=== PATIENT | female | born 1985 | race Caucasian/White ===

== ENCOUNTER → 2017-10-17 | Outpatient (CLI) | payer OTHER ==
[2017-10-17 13:34] LABS: BLOOD UREA NITROGEN 14 mg/dl (7-18); CALCIUM 9.2 mg/dl (8.5-10.1); CARBON DIOXIDE 30 mmol/L (21-32); CREATININE 0.64 mg/dl (0.60-1.20); GLUCOSE 97 mg/dl (70-99); POTASSIUM 3.9 mmol/L (3.5-5.1); SODIUM 136 mmol/L (136-145)
[2017-10-17 13:37] LABS: CHOLESTEROL 149 mg/dl (0-200); LDL CHOLESTEROL CALCULATED 76 mg/dl
== END | disposition home or self-care (01) ==
LOC: C.LABPVFM 08:28
PROVIDERS: ATTEND Nurse Practitioner Family
DX: E66.01 Morbid (severe) obesity due to excess calories (principal); I10 Essential (primary) hypertension

== ENCOUNTER → 2018-01-16 | Outpatient (CLI) | payer OTHER ==
[2018-01-16 13:37] LABS: BLOOD UREA NITROGEN 15 mg/dl (7-18); CARBON DIOXIDE 27 mmol/L (21-32); CREATININE 0.64 mg/dl (0.60-1.20); GLUCOSE 104 mg/dl (70-99); POTASSIUM 4.3 mmol/L (3.5-5.1); SODIUM 136 mmol/L (136-145)
== END | disposition home or self-care (01) ==
LOC: C.LABPVFM 08:42
PROVIDERS: ATTEND Nurse Practitioner Family
DX: I10 Essential (primary) hypertension (principal)

== ENCOUNTER 2020-04-24 17:55 | Inpatient (IN) ==
[2020-04-24] MEDS ORDERED: SODIUM CHLORIDE 0.9% 1000ML 2,000 ML IV ONE (18:21)
[2020-04-24] MEDS ORDERED: cefTRIAXone SODIUM 1,000 MG/50 ML BAG IV STA (18:21)
[2020-04-24] MEDS ORDERED: ACETAMINOPHEN 500 MG TAB PO STA (18:21)
[2020-04-24] MEDS ORDERED: KETOROLAC TROMETHAMINE 15 MG/ML VIAL IV ONE ×2 (18:21→23:35)
--- NOTE | 2020-04-24 18:28 | Emergency Department Note ---
Impression & Plan SIRS (systemic inflammatory response syndrome), Fever, Tachycardia, Cough, Abdominal pain, Morbid obesity, Leukocytosis ED Provider Note NAME: NASIM DEVRIES AGE: 35 SEX: F : 1985 ARRIVES VIA: Walk-In INFORMANT: Patient ED PROVIDER(S): French Albright DO CHIEF COMPLAINT: Fever HPI: Patient is a 35-year-old female who presents the ER for fevers. She notes her symptoms started today in the afternoon around 12:00. Since then she has been having fevers above 101. She has been having belly pain in the epigastric region and is a 5 out of 10. She admits to a dry cough. She does have some shortness of breath and chest pain as well which has been present since 12. She denies any dysuria urgency or frequency. Belly pain is a little worse with m ovement. Does not appear to change with eating or drinking. Last menstrual period was 7 days ago. She has not been around anybody that has been sick that she is aware of. 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 She also admits to a mild headache which is a 2 out of 10. She has diffuse myalgias and arthralgias. She denies any tick bites. ROS: See above HPI for pertinent positives & negatives. A total of 10 systems reviewed and were otherwise negative. PAST MEDICAL HISTORY:See Below PAST SURGICAL HISTORY:See Below FAMILY HISTORY:See Below SOCIAL HISTORY:See Below HOME MEDICATIONS:See Below ALLERGIES:See Below VITALS:See Below PHYSICAL EXAMINATION: GENERAL: Sitting up in bed, alert, morbidly obese, crying, disheveled EYE EXAM: normal conjunctiva. PERRL and EOM's grossly intact. EARS: TMs clear bilateral OROPHARYNX: no exudate, no erythema, lips, buccal mucosa, and tongue normal and mucous membranes are moist NECK: supple, no nuchal rigidity, no adenopathy, non-tender LUNGS: Clear to auscultation. Normal chest wall mechanics HEART: no murmurs, S1 normal and S2 normal ABDOMEN: abdomen soft, tender in the epigastric region, normo-active bowel sounds, no masses, no rebound or guarding. BACK: Back is symmetrical on inspection and there is no deformity, no midline tenderness, no CVA tenderness. SKIN: no rashes and no bruising UPPER EXTREMITIES: upper extremities are grossly normal. LOWER EXTREMITIES: No pitting edema. Calves are equal bilateral NEURO EXAM: Normal sensorium, cranial nerves II-XII grossly intact, normal speech, no gross weakness of arms, no gross weakness of legs. No drift. Finger to nose intact. Gross sensation intact. MEDICAL DECISION MAKING: Patient is a morbidly obese 35-year-old female who presents the ER for multitude of complaints which include fevers, myalgias, arthralgias, abdominal pain, cough ear pain and a mild headache. IV was established blood work was obtained. Patient was febrile at 39.4 and tachycardic at 120. Labs were remarkable for a leukocytosis of 23,000. No significant anemia. INR was unremarkable. BMP with slightly elevated glucose. Magnesium was low. LFTs and troponin were negative. Pro-Vazquez was normal. Lactic acid was normal. UA was contaminated with epithelial cells but clean. was negative. Bio fire was negative for the flu. Rapid COVID was negative. Chest x-ray was unremarkable. CT abdomen pelvis and head were negative. There is no nuchal rigidity. She has multitude of other complaints and I do not feel this most consistent with meningitis or e ncephalitis. Patient was given IV Rocephin and covered for sepsis. IV fluids x 2 L. She was given IV Toradol and oral Tylenol.. She was updated bedside. Discussed with the hospitalist admitted for further work-up. Triage Nursing notes reviewed. Prior medical records reviewed Vital Signs: reviewed and remarkable for febrile and tachycardic Differential diagnosis: Differential diagnosis includes etiologies such as sepsis, UTI, pneumonia, me tabolic, electrolyte abnormalities, cardiac sources, intracerebral event, toxicologic, neurological, as well as others were entertained. ER treatment provided: See below Diagnostics interpreted by me: ECG: Sinus tachycardia rate of 115 Normal axis TWI in lead III TWI in the septal leads Normal QTC Cardiac Monitoring: An order was placed for continuous cardiac monitoring. The monitor shows a rate of 115 with sinus rhythm. Laboratory studies: As stated above and show below. Imaging studies: CT abdomen pelvis, CT head were unremarkable Portable AP upright 1 view of the chest was unremarkable Consultation(s): Discussed with Liya Renner for admission. ED COURSE: Procedures: none Critical Care: I have personally spent 31 minutes of critical care time in the direct management of this patient. This includes bedside care, interpretation of diagnostic studies, and testing, discussion with consultants, patient, and family members, and other required patient management activities. This 31 minutes is in excess of all separately billable procedures. Past Med/Surg History Medical History (Updated 04/24/20 @ 22:23 by French Albright DO) Anxiety (Chronic) Essential hypertension (Chronic) Factor V Leiden (Chronic) GERD without esophagitis (Chronic) Protein S deficiency (Chronic) Super obesity (Chronic) Surgical History (Updated 01/14/20 @ 10:17 by ELBA Bullock) History of dental surgery Family History (Updated 01/14/20 @ 10:18 by ELBA Bullock) Other No pertinent family history Denies family history of Ovarian cancer Prostate cancer Myocardial infarction Breast cancer Colorectal cancer Social History Smoking Status: Never smoker Hx Alcohol Use: Yes Hx Substance Use: No marital status: Current Living Situation: Spouse current occupational status: employed Feels Safe at Home: Yes Dental Care, Regularly: Yes Seatbelt Use: always Allergies Allergies Allergy/AdvReac Type Severity Reaction Status Date / Time latex Allergy Mild RASH ON Verified 04/24/20 19:46 ARMS FROM USING GLOVES Penicillins Allergy Mild RASH Verified 04/24/20 19:46 CHILD NICKELSULFATE Allergy Mild RASH AND Uncoded 04/24/20 19:46 IRRITATION WHEN WEARS JEWELERY OR BUCKLE WITH NICKE Home Meds Previous Rx's Medication Instructions Recorded sertraline 50 mg tablet 50 mg PO DAILY #90 tab 08/25/19 famotidine 40 mg tablet 40 mg PO HS PRN #90 tab 10/08/19 lisinopril 20 mg tablet 20 mg PO DAILY #90 tab 10/08/19 furosemide 20 mg tablet 10 mg PO DAILY #45 tab 10/15/19 omeprazole 20 mg capsule,delayed 20 mg PO DAILY #90 cap 02/22/20 release Results & Data (ED) Vital Signs Vital Signs - 24 hr 04/24/20 17:59 04/24/20 18:26 04/24/20 18:29 Temperature 38.6 C H Temperature Source Oral Pulse Rate 120 H 115 H Pulse Rate from SpO2 Sensor 114 H Respiratory Rate 20 18 Respiratory Effort / Characteristics Non-Labored Non-Labored Spontaneous Respiratory Depth Normal Respiratory Pattern Regular Blood Pressure 145/62 H Blood Pressure Mean 89 Pulse Oximetry 98 95 Oxygen Delivery Method Room Air Room Air Room Air Sepsis Recent Fever Within 48 Hours Yes Sepsis New/Unexplained Change in Mental Status N/A Sepsis Action Taken by Nursing No Action Required 04/24/20 18:30 04/24/20 18:39 04/24/20 18:40 Temperature Temperature Source Pulse Rate 113 H 111 H Pulse Rate from SpO2 Sensor 114 H 112 H Respiratory Rate 18 21 Respiratory Effort / Characteristics Non-Labored Spontaneous Respiratory Depth Respiratory Pattern Blood Pressure Blood Pressure Mean Pulse Oximetry 97 98 Oxygen Delivery Method Room Air Room Air Room Air Sepsis Recent Fever Within 48 Hours Sepsis New/Unexplained Change in Mental Status Sepsis Action Taken by Nursing 04/24/20 18:50 04/24/20 19:00 04/24/20 19:30 Temperature Temperature Source Pulse Rate 108 H 116 H Pulse Rate from SpO2 Sensor 108 H 117 H Respiratory Rate 19 19 Respiratory Effort / Characteristics Non-Labored Respiratory Depth Respiratory Pattern Blood Pressure Blood Pressure Mean Pulse Oximetry 99 98 95 Oxygen Delivery Method Room Air Room Air Room Air Sepsis Recent Fever Within 48 Hours Sepsis New/Unexplained Change in Mental Status Sepsis Action Taken by Nursing 04/24/20 19:49 04/24/20 20:12 04/24/20 20:30 Temperature 39.4 C H Temperature Source Oral Pulse Rate Pulse Rate from SpO2 Sensor Respiratory Rate 18 Respiratory Effort / Characteristics Non-Labored Non-Labored Respiratory Depth Respiratory Pattern Blood Pressure Blood Pressure Mean Pulse Oximetry 96 95 Oxygen Delivery Method Room Air Room Air Sepsis Recent Fever Within 48 Hours Sepsis New/Unexplained Change in Mental Status Sepsis Action Taken by Nursing 04/24/20 21:00 04/24/20 21:30 Temperature Temperature Source Pulse Rate Pulse Rate from SpO2 Sensor Respiratory Rate Respiratory Effort / Characteristics Non-Labored Non-Labored Respiratory Depth Respiratory Pattern Blood Pressure Blood Pressure Mean Pulse Oximetry 95 Oxygen Delivery Method Room Air Sepsis Recent Fever Within 48 Hours Sepsis New/Unexplained Change in Mental Status Sepsis Action Taken by Nursing Laboratory Data Result diagrams: 04/24/20 18:34 04/24/20 18:34 Lab Results 04/24/20 04/24/20 04/24/20 Range/Units 18:34 18:34 18:34 WBC 23.65 H (4.8-10.8) K/uL RBC 4.69 (4.2-5.4) M/uL Hgb 12.5 (12.0-16.0) g/dL Hct 37.5 (37-47) % MCV 80.0 (80-100) fL MCH 26.7 (25-34) pg MCHC 33.3 (32-36) g/dL RDW Std Deviation 42.7 (36.4-46.3) fL RDW Coeff of Libby 14.7 H (11.5-14.5) % Plt Count 300 (130-400) K/uL MPV 9.0 (7.4-10.4) fL Immature Gran % (Auto) 0.4 % Neut % (Auto) 91.6 % Lymph % (Auto) 2.7 % Ritchie % (Auto) 5.3 % Eos % (Auto) 0.0 % Baso % (Auto) 0.0 % Neut # (Auto) 21.65 H (1.4-6.5) K/uL Lymph # (Auto) 0.65 L (1.2-3.4) K/uL Ritchie # (Auto) 1.25 H (0.11-0.59) K/uL Eos # (Auto) 0.00 (0-0.5) K/uL Baso # (Auto) 0.01 (0-0.2) K/uL Immature Gran # (Auto) 0.09 H (0.00-0.02) K/uL PT 10.6 (9.0-12.0) Seconds INR 1.0 (0.9-1.1) APTT 25.6 (21.0-31.0) Seconds PTT Ratio 0.9 Sodium 137 (136-145) mmol/L Potassium 4.3 (3.5-5.1) mmol/L Chloride 101 (98-107) mmol/L Carbon Dioxide 28 (21-32) mmol/L Anion Gap 8.0 (3-11) BUN 18 (7-18) mg/dl Creatinine 0.77 (0.6-1.2) mg/dl Est Cr Clr Drug Dosing 148.9 ml/min Est GFR ( Amer) 115.9 Est GFR (Non-Af Amer) 100.0 BUN/Creatinine Ratio 23.7 H (10-20) Glucose 112 H (70-99) mg/dl Lactate (0.4-2.0) mmol/L Calcium 8.7 (8.5-10.1) mg/dl Magnesium 1.5 L (1.8-2.4) mg/dl Total Bilirubin 0.3 (0.2-1) mg/dl AST 13 L (15-37) U/L ALT 23 (12-78) U/L Alkaline Phosphatase 67 (45-117) U/L Troponin I < 0.015 (0-0.045) ng/ml Total Protein 7.3 (6.4-8.2) gm/dl Albumin 3.4 (3.4-5.0) gm/dl Globulin 3.9 (2.5-4.0) gm/dl Albumin/Globulin Ratio 0.9 (0.9-2) Procalcitonin (0-0.5) ng/ml Urine Color Urine Appearance (Clear) Urine pH (4.5-7.5) Ur Specific [place] (1.000-1.030) Urine Protein (Negative) Urine Glucose (UA) (Negative) Urine Ketones (Negative) Urine Blood (Negative) Urine Nitrite (Negative) Urine Bilirubin (Negative) Urine Urobilinogen (Negative) Ur Leukocyte Esterase (Negative) Urine WBC (Auto) (0-5) /hpf Urine RBC (Auto) (0-4) /hpf U Hyaline Cast (Auto) (0-5) /lpf U Epithel Cells (Auto) (0-5) /lpf Urine Bacteria (Auto) (Negative) Urine Test (Negative) Adenovirus (PCR) (NotDetected) B. pertussis DNA (PCR) (NotDetected) B.parapertussis DNA PCR (NotDetected) C. pneumoniae DNA (PCR) (NotDetected) Coronavirus OC43 (PCR) (NotDetected) Coronavirus HKU1 (PCR) (NotDetected) Coronavirus 229E (PCR) (NotDetected) COVID-19 PCR (Negative) Coronavirus NL63 (PCR) (NotDetected) Human Metapneumovir PCR (NotDetected) Influenza Type A (PCR) Influenza Type B (PCR) M. pneumoniae (PCR) (NotDetected) Parainfluenza 1 (PCR) (NotDetected) Parainfluenza 2 (PCR) (NotDetected) Parainfluenza 3 (PCR) (NotDetected) Parainfluenza 4 (PCR) (NotDetected) RSV (PCR) (NotDetected) Entero/Rhino (PCR) (NotDetected) 04/24/20 04/24/20 04/24/20 Range/Units 18:34 18:34 18:58 WBC (4.8-10.8) K/uL RBC (4.2-5.4) M/uL Hgb (12.0-16.0) g/dL Hct (37-47) % MCV (80-100) fL MCH (25-34) pg MCHC (32-36) g/dL RDW Std Deviation (36.4-46.3) fL RDW Coeff of Libby (11.5-14.5) % Plt Count (130-400) K/uL MPV (7.4-10.4) fL Immature Gran % (Auto) % Neut % (Auto) % Lymph % (Auto) % Ritchie % (Auto) % Eos % (Auto) % Baso % (Auto) % Neut # (Auto) (1.4-6.5) K/uL Lymph # (Auto) (1.2-3.4) K/uL Ritchie # (Auto) (0.11-0.59) K/uL Eos # (Auto) (0-0.5) K/uL Baso # (Auto) (0-0.2) K/uL Immature Gran # (Auto) (0.00-0.02) K/uL PT (9.0-12.0) Seconds INR (0.9-1.1) APTT (21.0-31.0) Seconds PTT Ratio Sodium (136-145) mmol/L Potassium (3.5-5.1) mmol/L Chloride (98-107) mmol/L Carbon Dioxide (21-32) mmol/L Anion Gap (3-11) BUN (7-18) mg/dl Creatinine (0.6-1.2) mg/dl Est Cr Clr Drug Dosing ml/min Est GFR ( Amer) Est GFR (Non-Af Amer) BUN/Creatinine Ratio (10-20) Glucose (70-99) mg/dl Lactate 1.5 (0.4-2.0) mmol/L Calcium (8.5-10.1) mg/dl Magnesium (1.8-2.4) mg/dl Total Bilirubin (0.2-1) mg/dl AST (15-37) U/L ALT (12-78) U/L Alkaline Phosphatase (45-117) U/L Troponin I (0-0.045) ng/ml Total Protein (6.4-8.2) gm/dl Albumin (3.4-5.0) gm/dl Globulin (2.5-4.0) gm/dl Albumin/Globulin Ratio (0.9-2) Procalcitonin 0.17 (0-0.5) ng/ml Urine Color Yellow Urine Appearance Cloudy A (Clear) Urine pH 6.5 (4.5-7.5) Ur Specific Selma 1.023 (1.000-1.030) Urine Protein Negative (Negative) Urine Glucose (UA) Negative (Negative) Urine Ketones Negative (Negative) Urine Blood Negative (Negative) Urine Nitrite Negative (Negative) Urine Bilirubin Negative (Negative) Urine Urobilinogen Negative (Negative) Ur Leukocyte Esterase Negative (Negative) Urine WBC (Auto) 1-5 (0-5) /hpf Urine RBC (Auto) 0-4 (0-4) /hpf U Hyaline Cast (Auto) 0 (0-5) /lpf U Epithel Cells (Auto) >30 H (0-5) /lpf Urine Bacteria (Auto) Negative (Negative) Urine Test (Negative) Adenovirus (PCR) (NotDetected) B. pertussis DNA (PCR) (NotDetected) B.parapertussis DNA PCR (NotDetected) C. pneumoniae DNA (PCR) (NotDetected) Coronavirus OC43 (PCR) (NotDetected) Coronavirus HKU1 (PCR) (NotDetected) Coronavirus 229E (PCR) (NotDetected) COVID-19 PCR (Negative) Coronavirus NL63 (PCR) (NotDetected) Human Metapneumovir PCR (NotDetected) Influenza Type A (PCR) Influenza Type B (PCR) M. pneumoniae (PCR) (NotDetected) Parainfluenza 1 (PCR) (NotDetected) Parainfluenza 2 (PCR) (NotDetected) Parainfluenza 3 (PCR) (NotDetected) Parainfluenza 4 (PCR) (NotDetected) RSV (PCR) (NotDetected) Entero/Rhino (PCR) (NotDetected) 04/24/20 04/24/20 04/24/20 Range/Units 18:58 18:58 18:58 WBC (4.8-10.8) K/uL RBC (4.2-5.4) M/uL Hgb (12.0-16.0) g/dL Hct (37-47) % MCV (80-100) fL MCH (25-34) pg MCHC (32-36) g/dL RDW Std Deviation (36.4-46.3) fL RDW Coeff of Libby (11.5-14.5) % Plt Count (130-400) K/uL MPV (7.4-10.4) fL Immature Gran % (Auto) % Neut % (Auto) % Lymph % (Auto) % Ritchie % (Auto) % Eos % (Auto) % Baso % (Auto) % Neut # (Auto) (1.4-6.5) K/uL Lymph # (Auto) (1.2-3.4) K/uL Ritchie # (Auto) (0.11-0.59) K/uL Eos # (Auto) (0-0.5) K/uL Baso # (Auto) (0-0.2) K/uL Immature Gran # (Auto) (0.00-0.02) K/uL PT (9.0-12.0) Seconds INR (0.9-1.1) APTT (21.0-31.0) Seconds PTT Ratio Sodium (136-145) mmol/L Potassium (3.5-5.1) mmol/L Chloride (98-107) mmol/L Carbon Dioxide (21-32) mmol/L Anion Gap (3-11) BUN (7-18) mg/dl Creatinine (0.6-1.2) mg/dl Est Cr Clr Drug Dosing ml/min Est GFR ( Amer) Est GFR (Non-Af Amer) BUN/Creatinine Ratio (10-20) Glucose (70-99) mg/dl Lactate (0.4-2.0) mmol/L Calcium (8.5-10.1) mg/dl Magnesium (1.8-2.4) mg/dl Total Bilirubin (0.2-1) mg/dl AST (15-37) U/L ALT (12-78) U/L Alkaline Phosphatase (45-117) U/L Troponin I (0-0.045) ng/ml Total Protein (6.4-8.2) gm/dl Albumin (3.4-5.0) gm/dl Globulin (2.5-4.0) gm/dl Albumin/Globulin Ratio (0.9-2) Procalcitonin (0-0.5) ng/ml Urine Color Urine Appearance (Clear) Urine pH (4.5-7.5) Ur Specific Sel[place] (1.000-1.030) Urine Protein (Negative) Urine Glucose (UA) (Negative) Urine Ketones (Negative) Urine Blood (Negative) Urine Nitrite (Negative) Urine Bilirubin (Negative) Urine Urobilinogen (Negative) Ur Leukocyte Esterase (Negative) Urine WBC (Auto) (0-5) /hpf Urine RBC (Auto) (0-4) /hpf U Hyaline Cast (Auto) (0-5) /lpf U Epithel Cells (Auto) (0-5) /lpf Urine Bacteria (Auto) (Negative) Urine Test Negative (Negative) Adenovirus (PCR) Not Detected (NotDetected) B. pertussis DNA (PCR) Not Detected (NotDetected) B.parapertussis DNA PCR Not Detected (NotDetected) C. pneumoniae DNA (PCR) Not Detected (NotDetected) Coronavirus OC43 (PCR) Not Detected (NotDetected) Coronavirus HKU1 (PCR) Not Detected (NotDetected) Coronavirus 229E (PCR) Not Detected (NotDetected) COVID-19 PCR (Negative) Coronavirus NL63 (PCR) Not Detected (NotDetected) Human Metapneumovir PCR Not Detected (NotDetected) Influenza Type A (PCR) Cancelled Not Detected Influenza Type B (PCR) Cancelled Not Detected M. pneumoniae (PCR) Not Detected (NotDetected) Parainfluenza 1 (PCR) Not Detected (NotDetected) Parainfluenza 2 (PCR) Not Detected (NotDetected) Parainfluenza 3 (PCR) Not Detected (NotDetected) Parainfluenza 4 (PCR) Not Detected (NotDetected) RSV (PCR) Not Detected (NotDetected) Entero/Rhino (PCR) Not Detected (NotDetected) 04/24/20 Range/Units 18:59 WBC (4.8-10.8) K/uL RBC (4.2-5.4) M/uL Hgb (12.0-16.0) g/dL Hct (37-47) % MCV (80-100) fL MCH (25-34) pg MCHC (32-36) g/dL RDW Std Deviation (36.4-46.3) fL RDW Coeff of Libby (11.5-14.5) % Plt Count (130-400) K/uL MPV (7.4-10.4) fL Immature Gran % (Auto) % Neut % (Auto) % Lymph % (Auto) % Ritchie % (Auto) % Eos % (Auto) % Baso % (Auto) % Neut # (Auto) (1.4-6.5) K/uL Lymph # (Auto) (1.2-3.4) K/uL Ritchie # (Auto) (0.11-0.59) K/uL Eos # (Auto) (0-0.5) K/uL Baso # (Auto) (0-0.2) K/uL Immature Gran # (Auto) (0.00-0.02) K/uL PT (9.0-12.0) Seconds INR (0.9-1.1) APTT (21.0-31.0) Seconds PTT Ratio Sodium (136-145) mmol/L Potassium (3.5-5.1) mmol/L Chloride (98-107) mmol/L Carbon Dioxide (21-32) mmol/L Anion Gap (3-11) BUN (7-18) mg/dl Creatinine (0.6-1.2) mg/dl Est Cr Clr Drug Dosing ml/min Est GFR ( Amer) Est GFR (Non-Af Amer) BUN/Creatinine Ratio (10-20) Glucose (70-99) mg/dl Lactate (0.4-2.0) mmol/L Calcium (8.5-10.1) mg/dl Magnesium (1.8-2.4) mg/dl Total Bilirubin (0.2-1) mg/dl AST (15-37) U/L ALT (12-78) U/L Alkaline Phosphatase (45-117) U/L Troponin I (0-0.045) ng/ml Total Protein (6.4-8.2) gm/dl Albumin (3.4-5.0) gm/dl Globulin (2.5-4.0) gm/dl Albumin/Globulin Ratio (0.9-2) Procalcitonin (0-0.5) ng/ml Urine Color Urine Appearance (Clear) Urine pH (4.5-7.5) Ur Specific [place] (1.000-1.030) Urine Protein (Negative) Urine Glucose (UA) (Negative) Urine Ketones (Negative) Urine Blood (Negative) Urine Nitrite (Negative) Urine Bilirubin (Negative) Urine Urobilinogen (Negative) Ur Leukocyte Esterase (Negative) Urine WBC (Auto) (0-5) /hpf Urine RBC (Auto) (0-4) /hpf U Hyaline Cast (Auto) (0-5) /lpf U Epithel Cells (Auto) (0-5) /lpf Urine Bacteria (Auto) (Negative) Urine Test (Negative) Adenovirus (PCR) (NotDetected) B. pertussis DNA (PCR) (NotDetected) B.parapertussis DNA PCR (NotDetected) C. pneumoniae DNA (PCR) (NotDetected) Coronavirus OC43 (PCR) (NotDetected) Coronavirus HKU1 (PCR) (NotDetected) Coronavirus 229E (PCR) (NotDetected) COVID-19 PCR NEGATIVE (Negative) Coronavirus NL63 (PCR) (NotDetected) Human Metapneumovir PCR (NotDetected) Influenza Type A (PCR) Influenza Type B (PCR) M. pneumoniae (PCR) (NotDetected) Parainfluenza 1 (PCR) (NotDetected) Parainfluenza 2 (PCR) (NotDetected) Parainfluenza 3 (PCR) (NotDetected) Parainfluenza 4 (PCR) (NotDetected) RSV (PCR) (NotDetected) Entero/Rhino (PCR) (NotDetected) Administered Medications Discontinued Medications Acetaminophen (Tylenol) 1,000 mg PO NOW STA Stop: 04/24/20 18:22 Last Admin: 04/24/20 18:52 Dose: 1,000 mg Documented by: [id number] Sodium Chloride (Nss 1000ml) 2,000 mls @ 999 mls/hr IV .Q2H1M ONE Stop: 04/24/20 20:21 Last Admin: 04/24/20 18:52 Dose: 999 mls/hr Documented by: [id number] Ceftriaxone Sodium (Rocephin) 1,000 mg in 50 mls @ 100 mls/hr IV NOW STA Stop: 04/24/20 18:50 Last Infusion: 04/24/20 19:25 Dose: 0 mls/hr Documented by: [id number] Admin: 04/24/20 18:52 Dose: 100 mls/hr Documented by: [id number] Ioversol (Optiray 320 100ml) 94 ml IV ONCE ONE Stop: 04/24/20 19:20 Last Admin: 04/24/20 19:20 Dose: 94 ml Documented by: [id number] Ketorolac Tromethamine (Toradol) 15 mg IV NOW ONE Stop: 04/24/20 18:22 Last Admin: 04/24/20 18:52 Dose: 15 mg Documented by: [id number] Discharge Plan Visit Data Chief Complaint: Flu Like Symptoms Stated Complaint: FEVER, SOB, ABDOMINAL PAIN, HEADACHE, MUSCLE PAIN ED Provider: French Albright Discharge Problem: SIRS (systemic inflammatory response syndrome), Fever, Tachycardia, Cough, Abdominal pain, Morbid obesity, Leukocytosis Forms Stand Alone Forms: [facility] [employer] Prescriptions Prescriptions: No Action sertraline 50 mg tablet 50 mg PO DAILY Qty: 90 RF: 3 furosemide 20 mg tablet 10 mg PO DAILY Qty: 45 RF: 3 omeprazole 20 mg capsule,delayed release(DR/EC) 20 mg PO DAILY Qty: 90 RF: 1 lisinopril 20 mg tablet 20 mg PO DAILY Qty: 90 RF: 3 famotidine 40 mg tablet 40 mg PO HS PRN (Reason: GERD) Qty: 90 RF: 1 Discharge Problem: Fever Qualifiers: Fever type: unspecified Qualified Code(s): R50.9 - Fever, unspecified Abdominal pain Qualifiers: Abdominal location: unspecified location Qualified Code(s): R10.9 - Unspecified abdominal pain Leukocytosis Qualifiers: Leukocytosis type: unspecified Qualified Code(s): D72.829 - Elevated white blood cell count, unspecified
[2020-04-24 18:47] LABS: Hematocrit (blood only) 37.5 % (37-47); Hemoglobin 12.5 g/dL (12.0-16.0); Mean Corpuscular Hemoglobin 26.7 pg (25-34); Mean Corpuscular Hgb Conc 33.3 g/dL (32-36); Platelet Count 300 K/uL (130-400); RDW Coefficient of Variation 14.7 % (11.5-14.5); RDW Standard Deviation 42.7 fL (36.4-46.3); Red Blood Count 4.69 M/uL (4.2-5.4); White Blood Count 23.65 K/uL (4.8-10.8)
[2020-04-24 18:57] LABS: Partial Thromboplastin Ratio 0.9; Partial Thromboplastin Time 25.6 Seconds (21.0-31.0); Prothrombin Time 10.6 Seconds (9.0-12.0)
[2020-04-24 19:05] LABS: Alanine Aminotransferase 23 U/L (12-78); Albumin Level 3.4 gm/dl (3.4-5.0); Aspartate Aminotransferase 13 U/L (15-37); BUN Creatinine Ratio 23.7 (10-20); Blood Urea Nitrogen 18 mg/dl (7-18); Calcium 8.7 mg/dl (8.5-10.1); Carbon Dioxide 28 mmol/L (21-32); Chloride 101 mmol/L (98-107); Creatinine Clr Calc Pharmacy 148.9 ml/min; Est GFR (African American) 115.9; Glucose 112 mg/dl (70-99); Magnesium 1.5 mg/dl (1.8-2.4); Potassium 4.3 mmol/L (3.5-5.1); Sodium 137 mmol/L (136-145)
[2020-04-24 19:10] LABS: Albumin Globulin Ratio 0.9 (0.9-2); Alkaline Phosphatase 67 U/L (45-117); Bilirubin,Total 0.3 mg/dl (0.2-1); Globulin 3.9 gm/dl (2.5-4.0); Total Protein 7.3 gm/dl (6.4-8.2); Troponin I < 0.015 ng/ml (0-0.045)
[2020-04-24 19:11] LABS: Basophils # (auto) 0.01 K/uL (0-0.2); Immature Granulocytes # (auto) 0.09 K/uL (0.00-0.02); Immature Granulocytes % (auto) 0.4 %; Lymphocytes # (auto) 0.65 K/uL (1.2-3.4); Lymphocytes % (auto) 2.7 %; Monocytes # (auto) 1.25 K/uL (0.11-0.59); Monocytes % (auto) 5.3 %; Neutrophils # (auto) 21.65 K/uL (1.4-6.5); Neutrophils % (auto) 91.6 %
[2020-04-24 19:11] LABS: Appearance Urine Cloudy (Clear); Bacteria Urine Automated Negative (Negative); Bilirubin Urine Negative (Negative); Blood Urine Negative (Negative); Cast Urine Automated 0 /lpf (0-5); Color Urine Yellow; Epithelial Cell Urine Auto >30 /lpf (0-5); Glucose Urine UA Negative (Negative); Ketones Urine Negative (Negative); Leukocyte Esterase Urine Negative (Negative); Nitrite Urine Negative (Negative); Protein Urine Negative (Negative); RBC Urine Automated 0-4 /hpf (0-4); Specific Gravity Urine 1.023 (1.000-1.030); Urobilinogen Urine Negative (Negative); pH Urine 6.5 (4.5-7.5)
--- NOTE | 2020-04-24 19:17 | XRay Report ---
XR chest 1V portable CLINICAL HISTORY: Shortness of breath EPIGASTRIC AND ABDOMINAL PAIN COMPARISON STUDY: No previous studies for comparison. FINDINGS: The cardiac and mediastinal contours are normal. There is no evidence of focal pulmonary co nsolidation. There is no evidence of failure. No pleural effusions are visualized.[There is no free i ntraperitoneal air. IMPRESSION: No active disease in the chest. ACT 112: Negative or not required by law. Electronically signed by: Tres Felix M.D. 04/24/2020 7:16 PM
[2020-04-24] MEDS ORDERED: IOVERSOL 100ml IV ONE (19:19)
[2020-04-24 19:25] LABS: Procalcitonin 0.17 ng/ml (0-0.5)
--- NOTE | 2020-04-24 19:39 | CT Scan Report ---
CT head/brain wo con CLINICAL HISTORY: Headache COMPARISON STUDY: No previous studies for comparison. TECHNIQUE: Axial CT of the brain is performed from the vertex to the skull base. IV contrast was not administered for this examination. A dose lowering technique was utilized adhering to the principles of ALARA. CT DOSE: 2656.42 mGy.cm FINDINGS: No intra or extra-axial mass lesions are visualized. There is no CT evidence of acute cortical infarc tion. There is no evidence of midline shift. There is no acute hemorrhage. No calvarial fractures ar e visualized. There are a few equivocal subtle white matter hypodensities which potentially artifactual. If symptom s persist, an MRI could be obtained in follow-up. There is no evidence of pathologic ventricular dilatation. There is no evidence of acute sinusitis IMPRESSION: 1. No acute intracranial findings 2. There are a few equivocal subtle white matter hypodensities which potentially artifactual. ACT 112: Negative or not required by law. Electronically signed by: Tres Felix M.D. 04/24/2020 7:38 PM
--- NOTE | 2020-04-24 19:43 | CT Scan Report ---
CT abd pelvis IV con only CLINICAL HISTORY: Epigastric abdominal pain COMPARISON STUDY: None. TECHNIQUE: The patient was scanned in a dynamic helical fashion during intravenous administration of 94 cc of Optiray 320 A dose lowering technique was utilized adhering to the principles of ALARA. CT DOSE: FINDINGS: Lower chest: There is a 2.5 mm right lower lobe pulmonary nodule. In a low-risk patient, no further f ollow-up is indicated. Liver: There is mild hepatic steatosis. No focal hepatic masses are visualized. The portal and hepati c veins appear patent. Gallbladder: Unremarkable. Spleen: Normal in size and attenuation. Pancreas: Unremarkable. Adrenal glands: Unremarkable. Kidneys: There is an 11 mm left renal cyst. There is no hydronephrosis. No solid renal masses are vis ualized. Bowel: There are no transition zones indicate bowel obstruction. There is no evidence of acute divert iculitis. There is no evidence of acute appendicitis. Peritoneum: There is trace free pelvic fluid likely physiologic. There is no free intraperitoneal air . There are small fat-containing umbilical hernia Vasculature: The abdominal aorta is normal in course and caliber. Adenopathy: None. Pelvic viscera: The bladder, and pelvic viscera are unremarkable. Skeletal structures: No destructive osseous lesions are seen. IMPRESSION: 1. No acute abdominal or pelvic findings 2. No evidence of bowel obstruction. No evidence of free air 3. No evidence of acute appendicitis. No evidence of acute diverticulitis. 4. Hepatic steatosis ACT 112: Negative or not required by law. Electronically signed by: Tres Felix M.D. 04/24/2020 7:42 PM
[2020-04-24 19:59] LABS: Adenovirus PCR Not Detected (NotDetected); Bordetella parapertussis PCR Not Detected (NotDetected); Bordetella pertussis PCR Not Detected (NotDetected); Chlamydia pneumoniae PCR Not Detected (NotDetected); Coronavirus 229E PCR Not Detected (NotDetected); Coronavirus HKU1 PCR Not Detected (NotDetected); Coronavirus NL63 PCR Not Detected (NotDetected); Coronavirus OC43PCR Not Detected (NotDetected); Human Metapneumovirus PCR Not Detected (NotDetected); Influenza A PCR Not Detected (NotDetected); Influenza B PCR Not Detected (NotDetected); Mycoplasma pneumoniae PCR Not Detected (NotDetected); Parainfluenza Virus 1 PCR Not Detected (NotDetected); Parainfluenza Virus 2 PCR Not Detected (NotDetected); Parainfluenza Virus 3 PCR Not Detected (NotDetected); Parainfluenza Virus 4 PCR Not Detected (NotDetected); Respiratory Syncytial VirusPCR Not Detected (NotDetected); Rhinovirus/Enterovirus PCR Not Detected (NotDetected)
[2020-04-24 20:19] LABS: Pregnancy Test, Urine Negative (Negative)
--- NOTE | 2020-04-24 21:58 | History & Physical Report ---
Date of Service April 24, 2020 Assessment & Plan (1) SIRS (systemic inflammatory response syndrome): Patient febrile, tachycardic with leukocytosis (neutrophil predominant, lymphopenic). UA, CXR, CT Abdomen unremarkable for source of infection. Biofire and COVID-19 testing negative. Concern for LLE cellulitis vs DVT. Patient with history of Factor V Leiden and Protein S deficiency, not on anticoagulation, no prior VTEs. -Admit to medical floor -Follow culture results -Check LLE doppler -Bactrim DS BID -Monitor for progression of cellulitis -Repeat labs in AM Present on Admission?: Yes (2) Factor V Leiden: As above -Check for VTE -Lovenox ppx Present on Admission?: Yes (3) GERD without esophagitis: Chronic. Well controlled -Omeprazole 20mg po daily, to Protonix while inpatient Present on Admission?: Yes (4) Essential hypertension: Blood pressure stable. Cuff on left forearm in ER -Continue Lisinopril 20mg po daily with holding parameters Present on Admission?: Yes (5) Anxiety: Chronic. Stable -Continue Sertraline 50mg po daily F/E/N - NSS at 125mL/hr x 2 liters, Mg repletion with 2gm, Heart healthy diet as tolerated Ppx - Lovenox 40mg BID Code - Full Dispo - Admit to medical floor Present on Admission?: Yes History of Present Illness Chief Complaint: fever/chills/nausea Primary Care Provider: BESSY Duarte Elizabeth Boyce is a 35yo female with history of Factor V Leiden, Protein S deficiency, HTN, anxiety, GERD and super obesity presenting with acute onset of fevers/chills/myalgias and nausea that started suddenly today at 12:00. Also complaining of epigastric discomfort, dry cough, CP, SOB, HARRELL and arthralgias. Patient with no recent travel, no sick contacts. She works for housekeeping at [employer]. No known Covid-19 exposure. ER Course: Tylenol, Ceftriaxone, Toradol Allergies Allergy/AdvReac Type Severity Reaction Status Date / Time latex Allergy Mild RASH ON Verified 04/24/20 19:46 ARMS FROM USING GLOVES Penicillins Allergy Mild RASH Verified 04/24/20 19:46 CHILD NICKELSULFATE Allergy Mild RASH AND Uncoded 04/24/20 19:46 IRRITATION WHEN WEARS JEWELERY OR BUCKLE WITH NICKE Home Medications Home Medications Medication Instructions Recorded Confirmed Type sertraline 50 mg tablet 50 mg PO DAILY #90 tab 08/25/19 04/24/20 Rx famotidine 40 mg tablet 40 mg PO HS PRN #90 tab 10/08/19 04/24/20 Rx lisinopril 20 mg tablet 20 mg PO DAILY #90 tab 10/08/19 04/24/20 Rx furosemide 20 mg tablet 10 mg PO DAILY #45 tab 10/15/19 04/24/20 Rx omeprazole 20 mg capsule,delayed 20 mg PO DAILY #90 cap 02/22/20 04/24/20 Rx release Past Med/Surg History Medical History (Updated 04/24/20 @ 22:23 by French Albright DO) Anxiety (Chronic) Essential hypertension (Chronic) Factor V Leiden (Chronic) GERD without esophagitis (Chronic) Protein S deficiency (Chronic) Super obesity (Chronic) Surgical History (Updated 01/14/20 @ 10:17 by ELBA Bullock) History of dental surgery Family History (Updated 01/14/20 @ 10:18 by ELBA Bullock) Other No pertinent family history Denies family history of Ovarian cancer Prostate cancer Myocardial infarction Breast cancer Colorectal cancer Social History Smoking Status: Never smoker Hx Alcohol Use: Yes Hx Substance Use: No marital status: Current Living Situation: Spouse current occupational status: employed Feels Safe at Home: Yes Dental Care, Regularly: Yes Seatbelt Use: always Review of Systems Review of Systems: All systems reviewed & are unremarkable except as noted in HPI & below Physical Exam Physical Exam: General: patient resting comfortably, NAD, non-toxic in appe arance, AA&O x 4, very anxious and tearful Skin: warm, dry, intact, redness of LLE as below HEENT: NC/AT, PERRL, EOMI, anicteric sclera, conjunctiva without injection, external ear normal to inspection and nontender, nares patent, moist mucus membranes, dentition intact, no oropharyngeal lesions, neck supple, trachea midline, no LAD, no thyromegaly, no JVD Heart: +S1/S2, regular, no m/r/g Lungs: equal air entry bilaterally, no rales/rhonchi/wheezes Abd: +BS, soft, NT/ND, no masses/organomegaly/ascites Ext: warm, 2+ pulses in UE/LE bilaterally, no clubbing/cyanosis, +Edema of bilateral LE, L >R with redness, warmth and tenderness of LLE Neuro: nonfocal, patient AA&O x 4, speech intact, no facial droop, moving all extremities on command with equal strength 5/5 Results & Data Results & Data ([facility]) Vital Signs (Past 12 Hours) Vital Signs Temp Pulse Resp BP Pulse Ox 04/24/20 21:00 95 04/24/20 20:30 18 95 04/24/20 20:12 96 04/24/20 19:49 39.4 C H 04/24/20 19:30 95 04/24/20 19:00 116 H 19 98 04/24/20 18:50 108 H 19 99 04/24/20 18:40 111 H 21 98 04/24/20 18:30 113 H 18 97 04/24/20 18:29 115 H 18 95 04/24/20 17:59 38.6 C H 120 H 20 145/62 H 98 Laboratory Results Lab Results 04/24/20 04/24/20 04/24/20 Range/Units 18:34 18:34 18:34 WBC 23.65 H (4.8-10.8) K/uL RBC 4.69 (4.2-5.4) M/uL Hgb 12.5 (12.0-16.0) g/dL Hct 37.5 (37-47) % MCV 80.0 (80-100) fL MCH 26.7 (25-34) pg MCHC 33.3 (32-36) g/dL RDW Std Deviation 42.7 (36.4-46.3) fL RDW Coeff of Libby 14.7 H (11.5-14.5) % Plt Count 300 (130-400) K/uL MPV 9.0 (7.4-10.4) fL Immature Gran % (Auto) 0.4 % Neut % (Auto) 91.6 % Lymph % (Auto) 2.7 % Eddy % (Auto) 5.3 % Eos % (Auto) 0.0 % Baso % (Auto) 0.0 % Neut # (Auto) 21.65 H (1.4-6.5) K/uL Lymph # (Auto) 0.65 L (1.2-3.4) K/uL Eddy # (Auto) 1.25 H (0.11-0.59) K/uL Eos # (Auto) 0.00 (0-0.5) K/uL Baso # (Auto) 0.01 (0-0.2) K/uL Immature Gran # (Auto) 0.09 H (0.00-0.02) K/uL PT 10.6 (9.0-12.0) Seconds INR 1.0 (0.9-1.1) APTT 25.6 (21.0-31.0) Seconds PTT Ratio 0.9 Sodium 137 (136-145) mmol/L Potassium 4.3 (3.5-5.1) mmol/L Chloride 101 (98-107) mmol/L Carbon Dioxide 28 (21-32) mmol/L Anion Gap 8.0 (3-11) BUN 18 (7-18) mg/dl Creatinine 0.77 (0.6-1.2) mg/dl Est Cr Clr Drug Dosing 148.9 ml/min Est GFR ( Amer) 115.9 Est GFR (Non-Af Amer) 100.0 BUN/Creatinine Ratio 23.7 H (10-20) Glucose 112 H (70-99) mg/dl Lactate (0.4-2.0) mmol/L Calcium 8.7 (8.5-10.1) mg/dl Magnesium 1.5 L (1.8-2.4) mg/dl Total Bilirubin 0.3 (0.2-1) mg/dl AST 13 L (15-37) U/L ALT 23 (12-78) U/L Alkaline Phosphatase 67 (45-117) U/L Troponin I < 0.015 (0-0.045) ng/ml Total Protein 7.3 (6.4-8.2) gm/dl Albumin 3.4 (3.4-5.0) gm/dl Globulin 3.9 (2.5-4.0) gm/dl Albumin/Globulin Ratio 0.9 (0.9-2) Procalcitonin (0-0.5) ng/ml Urine Color Urine Appearance (Clear) Urine pH (4.5-7.5) Ur Specific Ramona (1.000-1.030) Urine Protein (Negative) Urine Glucose (UA) (Negative) Urine Ketones (Negative) Urine Blood (Negative) Urine Nitrite (Negative) Urine Bilirubin (Negative) Urine Urobilinogen (Negative) Ur Leukocyte Esterase (Negative) Urine WBC (Auto) (0-5) /hpf Urine RBC (Auto) (0-4) /hpf U Hyaline Cast (Auto) (0-5) /lpf U Epithel Cells (Auto) (0-5) /lpf Urine Bacteria (Auto) (Negative) Urine Test (Negative) Adenovirus (PCR) (NotDetected) B. pertussis DNA (PCR) (NotDetected) B.parapertussis DNA PCR (NotDetected) C. pneumoniae DNA (PCR) (NotDetected) Coronavirus OC43 (PCR) (NotDetected) Coronavirus HKU1 (PCR) (NotDetected) Coronavirus 229E (PCR) (NotDetected) COVID-19 PCR (Negative) Coronavirus NL63 (PCR) (NotDetected) Human Metapneumovir PCR (NotDetected) Influenza Type A (PCR) Influenza Type B (PCR) M. pneumoniae (PCR) (NotDetected) Parainfluenza 1 (PCR) (NotDetected) Parainfluenza 2 (PCR) (NotDetected) Parainfluenza 3 (PCR) (NotDetected) Parainfluenza 4 (PCR) (NotDetected) RSV (PCR) (NotDetected) Entero/Rhino (PCR) (NotDetected) 04/24/20 04/24/20 04/24/20 Range/Units 18:34 18:34 18:58 WBC (4.8-10.8) K/uL RBC (4.2-5.4) M/uL Hgb (12.0-16.0) g/dL Hct (37-47) % MCV (80-100) fL MCH (25-34) pg MCHC (32-36) g/dL RDW Std Deviation (36.4-46.3) fL RDW Coeff of Libby (11.5-14.5) % Plt Count (130-400) K/uL MPV (7.4-10.4) fL Immature Gran % (Auto) % Neut % (Auto) % Lymph % (Auto) % Eddy % (Auto) % Eos % (Auto) % Baso % (Auto) % Neut # (Auto) (1.4-6.5) K/uL Lymph # (Auto) (1.2-3.4) K/uL Eddy # (Auto) (0.11-0.59) K/uL Eos # (Auto) (0-0.5) K/uL Baso # (Auto) (0-0.2) K/uL Immature Gran # (Auto) (0.00-0.02) K/uL PT (9.0-12.0) Seconds INR (0.9-1.1) APTT (21.0-31.0) Seconds PTT Ratio Sodium (136-145) mmol/L Potassium (3.5-5.1) mmol/L Chloride (98-107) mmol/L Carbon Dioxide (21-32) mmol/L Anion Gap (3-11) BUN (7-18) mg/dl Creatinine (0.6-1.2) mg/dl Est Cr Clr Drug Dosing ml/min Est GFR ( Amer) Est GFR (Non-Af Amer) BUN/Creatinine Ratio (10-20) Glucose (70-99) mg/dl Lactate 1.5 (0.4-2.0) mmol/L Calcium (8.5-10.1) mg/dl Magnesium (1.8-2.4) mg/dl Total Bilirubin (0.2-1) mg/dl AST (15-37) U/L ALT (12-78) U/L Alkaline Phosphatase (45-117) U/L Troponin I (0-0.045) ng/ml Total Protein (6.4-8.2) gm/dl Albumin (3.4-5.0) gm/dl Globulin (2.5-4.0) gm/dl Albumin/Globulin Ratio (0.9-2) Procalcitonin 0.17 (0-0.5) ng/ml Urine Color Yellow Urine Appearance Cloudy A (Clear) Urine pH 6.5 (4.5-7.5) Ur Specific Ramona 1.023 (1.000-1.030) Urine Protein Negative (Negative) Urine Glucose (UA) Negative (Negative) Urine Ketones Negative (Negative) Urine Blood Negative (Negative) Urine Nitrite Negative (Negative) Urine Bilirubin Negative (Negative) Urine Urobilinogen Negative (Negative) Ur Leukocyte Esterase Negative (Negative) Urine WBC (Auto) 1-5 (0-5) /hpf Urine RBC (Auto) 0-4 (0-4) /hpf U Hyaline Cast (Auto) 0 (0-5) /lpf U Epithel Cells (Auto) >30 H (0-5) /lpf Urine Bacteria (Auto) Negative (Negative) Urine Test (Negative) Adenovirus (PCR) (NotDetected) B. pertussis DNA (PCR) (NotDetected) B.parapertussis DNA PCR (NotDetected) C. pneumoniae DNA (PCR) (NotDetected) Coronavirus OC43 (PCR) (NotDetected) Coronavirus HKU1 (PCR) (NotDetected) Coronavirus 229E (PCR) (NotDetected) COVID-19 PCR (Negative) Coronavirus NL63 (PCR) (NotDetected) Human Metapneumovir PCR (NotDetected) Influenza Type A (PCR) Influenza Type B (PCR) M. pneumoniae (PCR) (NotDetected) Parainfluenza 1 (PCR) (NotDetected) Parainfluenza 2 (PCR) (NotDetected) Parainfluenza 3 (PCR) (NotDetected) Parainfluenza 4 (PCR) (NotDetected) RSV (PCR) (NotDetected) Entero/Rhino (PCR) (NotDetected) 04/24/20 04/24/20 04/24/20 Range/Units 18:58 18:58 18:58 WBC (4.8-10.8) K/uL RBC (4.2-5.4) M/uL Hgb (12.0-16.0) g/dL Hct (37-47) % MCV (80-100) fL MCH (25-34) pg MCHC (32-36) g/dL RDW Std Deviation (36.4-46.3) fL RDW Coeff of Libby (11.5-14.5) % Plt Count (130-400) K/uL MPV (7.4-10.4) fL Immature Gran % (Auto) % Neut % (Auto) % Lymph % (Auto) % Eddy % (Auto) % Eos % (Auto) % Baso % (Auto) % Neut # (Auto) (1.4-6.5) K/uL Lymph # (Auto) (1.2-3.4) K/uL Eddy # (Auto) (0.11-0.59) K/uL Eos # (Auto) (0-0.5) K/uL Baso # (Auto) (0-0.2) K/uL Immature Gran # (Auto) (0.00-0.02) K/uL PT (9.0-12.0) Seconds INR (0.9-1.1) APTT (21.0-31.0) Seconds PTT Ratio Sodium (136-145) mmol/L Potassium (3.5-5.1) mmol/L Chloride (98-107) mmol/L Carbon Dioxide (21-32) mmol/L Anion Gap (3-11) BUN (7-18) mg/dl Creatinine (0.6-1.2) mg/dl Est Cr Clr Drug Dosing ml/min Est GFR ( Amer) Est GFR (Non-Af Amer) BUN/Creatinine Ratio (10-20) Glucose (70-99) mg/dl Lactate (0.4-2.0) mmol/L Calcium (8.5-10.1) mg/dl Magnesium (1.8-2.4) mg/dl Total Bilirubin (0.2-1) mg/dl AST (15-37) U/L ALT (12-78) U/L Alkaline Phosphatase (45-117) U/L Troponin I (0-0.045) ng/ml Total Protein (6.4-8.2) gm/dl Albumin (3.4-5.0) gm/dl Globulin (2.5-4.0) gm/dl Albumin/Globulin Ratio (0.9-2) Procalcitonin (0-0.5) ng/ml Urine Color Urine Appearance (Clear) Urine pH (4.5-7.5) Ur Specific Ramona (1.000-1.030) Urine Protein (Negative) Urine Glucose (UA) (Negative) Urine Ketones (Negative) Urine Blood (Negative) Urine Nitrite (Negative) Urine Bilirubin (Negative) Urine Urobilinogen (Negative) Ur Leukocyte Esterase (Negative) Urine WBC (Auto) (0-5) /hpf Urine RBC (Auto) (0-4) /hpf U Hyaline Cast (Auto) (0-5) /lpf U Epithel Cells (Auto) (0-5) /lpf Urine Bacteria (Auto) (Negative) Urine Test Negative (Negative) Adenovirus (PCR) Not Detected (NotDetected) B. pertussis DNA (PCR) Not Detected (NotDetected) B.parapertussis DNA PCR Not Detected (NotDetected) C. pneumoniae DNA (PCR) Not Detected (NotDetected) Coronavirus OC43 (PCR) Not Detected (NotDetected) Coronavirus HKU1 (PCR) Not Detected (NotDetected) Coronavirus 229E (PCR) Not Detected (NotDetected) COVID-19 PCR (Negative) Coronavirus NL63 (PCR) Not Detected (NotDetected) Human Metapneumovir PCR Not Detected (NotDetected) Influenza Type A (PCR) Cancelled Not Detected Influenza Type B (PCR) Cancelled Not Detected M. pneumoniae (PCR) Not Detected (NotDetected) Parainfluenza 1 (PCR) Not Detected (NotDetected) Parainfluenza 2 (PCR) Not Detected (NotDetected) Parainfluenza 3 (PCR) Not Detected (NotDetected) Parainfluenza 4 (PCR) Not Detected (NotDetected) RSV (PCR) Not Detected (NotDetected) Entero/Rhino (PCR) Not Detected (NotDetected) 04/24/20 Range/Units 18:59 WBC (4.8-10.8) K/uL RBC (4.2-5.4) M/uL Hgb (12.0-16.0) g/dL Hct (37-47) % MCV (80-100) fL MCH (25-34) pg MCHC (32-36) g/dL RDW Std Deviation (36.4-46.3) fL RDW Coeff of Libby (11.5-14.5) % Plt Count (130-400) K/uL MPV (7.4-10.4) fL Immature Gran % (Auto) % Neut % (Auto) % Lymph % (Auto) % Eddy % (Auto) % Eos % (Auto) % Baso % (Auto) % Neut # (Auto) (1.4-6.5) K/uL Lymph # (Auto) (1.2-3.4) K/uL Eddy # (Auto) (0.11-0.59) K/uL Eos # (Auto) (0-0.5) K/uL Baso # (Auto) (0-0.2) K/uL Immature Gran # (Auto) (0.00-0.02) K/uL PT (9.0-12.0) Seconds INR (0.9-1.1) APTT (21.0-31.0) Seconds PTT Ratio Sodium (136-145) mmol/L Potassium (3.5-5.1) mmol/L Chloride (98-107) mmol/L Carbon Dioxide (21-32) mmol/L Anion Gap (3-11) BUN (7-18) mg/dl Creatinine (0.6-1.2) mg/dl Est Cr Clr Drug Dosing ml/min Est GFR ( Amer) Est GFR (Non-Af Amer) BUN/Creatinine Ratio (10-20) Glucose (70-99) mg/dl Lactate (0.4-2.0) mmol/L Calcium (8.5-10.1) mg/dl Magnesium (1.8-2.4) mg/dl Total Bilirubin (0.2-1) mg/dl AST (15-37) U/L ALT (12-78) U/L Alkaline Phosphatase (45-117) U/L Troponin I (0-0.045) ng/ml Total Protein (6.4-8.2) gm/dl Albumin (3.4-5.0) gm/dl Globulin (2.5-4.0) gm/dl Albumin/Globulin Ratio (0.9-2) Procalcitonin (0-0.5) ng/ml Urine Color Urine Appearance (Clear) Urine pH (4.5-7.5) Ur Specific Ramona (1.000-1.030) Urine Protein (Negative) Urine Glucose (UA) (Negative) Urine Ketones (Negative) Urine Blood (Negative) Urine Nitrite (Negative) Urine Bilirubin (Negative) Urine Urobilinogen (Negative) Ur Leukocyte Esterase (Negative) Urine WBC (Auto) (0-5) /hpf Urine RBC (Auto) (0-4) /hpf U Hyaline Cast (Auto) (0-5) /lpf U Epithel Cells (Auto) (0-5) /lpf Urine Bacteria (Auto) (Negative) Urine Test (Negative) Adenovirus (PCR) (NotDetected) B. pertussis DNA (PCR) (NotDetected) B.parapertussis DNA PCR (NotDetected) C. pneumoniae DNA (PCR) (NotDetected) Coronavirus OC43 (PCR) (NotDetected) Coronavirus HKU1 (PCR) (NotDetected) Coronavirus 229E (PCR) (NotDetected) COVID-19 PCR NEGATIVE (Negative) Coronavirus NL63 (PCR) (NotDetected) Human Metapneumovir PCR (NotDetected) Influenza Type A (PCR) Influenza Type B (PCR) M. pneumoniae (PCR) (NotDetected) Parainfluenza 1 (PCR) (NotDetected) Parainfluenza 2 (PCR) (NotDetected) Parainfluenza 3 (PCR) (NotDetected) Parainfluenza 4 (PCR) (NotDetected) RSV (PCR) (NotDetected) Entero/Rhino (PCR) (NotDetected) Diagnostic Findings CT abd pelvis IV con only CLINICAL HISTORY: Epigastric abdominal pain COMPARISON STUDY: None. TECHNIQUE: The patient was scanned in a dynamic helical fashion during intravenous administration of 94 cc of Optiray 320 A dose lowering technique was utilized adhering to the principles of ALARA. CT DOSE: FINDINGS: Lower chest: There is a 2.5 mm right lower lobe pulmonary nodule. In a low-risk patient, no further follow-up is indicated. Liver: There is mild hepatic steatosis. No focal hepatic masses are visualized. The portal and hepatic veins appear patent. Gallbladder: Unremarkable. Spleen: Normal in size and attenuation. Pancreas: Unremarkable. Adrenal glands: Unremarkable. Kidneys: There is an 11 mm left renal cyst. There is no hydronephrosis. No solid renal masses are visualized. Bowel: There are no transition zones indicate bowel obstruction. There is no evidence of acute diverticulitis. There is no evidence of acute appendicitis. Peritoneum: There is trace free pelvic fluid likely physiologic. There is no free intraperitoneal air. There are small fat-containing umbilical hernia Vasculature: The abdominal aorta is normal in course and caliber. Adenopathy: None. Pelvic viscera: The bladder, and pelvic viscera are unremarkable. Skeletal structures: No destructive osseous lesions are seen. IMPRESSION: 1. No acute abdominal or pelvic findings 2. No evidence of bowel obstruction. No evidence of free air 3. No evidence of acute appendicitis. No evidence of acute diverticulitis. 4. Hepatic steatosis ACT 112: Negative or not required by law. Electronically signed by: Tres Felix M.D. 04/24/2020 7:42 PM Dictated: 04/24/201937 XR chest 1V portable CLINICAL HISTORY: Shortness of breath EPIGASTRIC AND ABDOMINAL PAIN COMPARISON STUDY: No previous studies for comparison. FINDINGS: The cardiac and mediastinal contours are normal. There is no evidence of focal pulmonary consolidation. There is no evidence of failure. No pleural effusions are visualized.[There is no free intraperitoneal air. IMPRESSION: No active disease in the chest. ACT 112: Negative or not required by law. Electronically signed by: Tres Felix M.D. 04/24/2020 7:16 PM Dictated: 04/24/201914 Transcribed: 04/24/201914 CT head/brain wo con CLINICAL HISTORY: Headache COMPARISON STUDY: No previous studies for comparison. TECHNIQUE: Axial CT of the brain is performed from the vertex to the skull base. IV contrast was not administered for this examination. A dose lowering technique was utilized adhering to the principles of ALARA. CT DOSE: 2656.42 mGy.cm FINDINGS: No intra or extra-axial mass lesions are visualized. There is no CT evidence of acute cortical infarction. There is no evidence of midline shift. There is no acute hemorrhage. No calvarial fractures are visualized. There are a few equivocal subtle white matter hypodensities which potentially artifactual. If symptoms persist, an MRI could be obtained in follow-up. There is no evidence of pathologic ventricular dilatation. There is no evidence of acute sinusitis IMPRESSION: 1. No acute intracranial findings 2. There are a few equivocal subtle white matter hypodensities which potentially artifactual. ACT 112: Negative or not required by law. Electronically signed by: Tres Felix M.D. 04/24/2020 7:38 PM Dictated: 04/24/201934 Transcribed: 04/24/201934 Code Status & VTE Plan Code Status FULL CODE VTE Prophylaxis Plan VTE Prophylaxis will be ordered: Yes PG Care Time/CCT Total # of Minutes Spent Total Time Spent with Patient: Total time spent is greater than 50% in coordination of care (as documented) at patient's floor/unit and/or counseling patient: Coding Level of Care Code 44126 Initial Inpt Care Lvl 3 Diagnoses SIRS (systemic inflammatory response syndrome) R65.10 Factor V Leiden D68.51 GERD without esophagitis K21.9 Essential hypertension I10 Anxiety F41.9
[2020-04-24] MEDS ORDERED: FAMOTIDINE 40 MG TABLET PO PRN (22:58)
[2020-04-24] MEDS: ONDANSETRON INJ 2 MG/ML 2 ML VIAL IV PRN ×2 (23:38→23:42)
[2020-04-24] MEDS: MAGNESIUM SULFATE / D5W 1 GM/100 ML BAG IV SCH (23:38)
[2020-04-24] MEDS: ENOXAPARIN INJ 40 MG/0.4 ML SYR SQ SCH (23:39)
[2020-04-24] MEDS ORDERED: SODIUM CHLORIDE 0.9% 1000ML 1,000 ML IV SCH (23:45)
[2020-04-25] MEDS: MAGNESIUM SULFATE / D5W 1 GM/100 ML BAG IV SCH (01:43)
[2020-04-25] MEDS: ACETAMINOPHEN 325 MG TAB PO PRN ×3 (03:47→17:13)
[2020-04-25 06:10] LABS: Basophils # (auto) 0.01 K/uL (0-0.2); Basophils % (auto) 0.1 %; Hematocrit (blood only) 32.1 % (37-47); Hemoglobin 10.7 g/dL (12.0-16.0); Immature Granulocytes # (auto) 0.05 K/uL (0.00-0.02); Immature Granulocytes % (auto) 0.3 %; Lymphocytes # (auto) 0.65 K/uL (1.2-3.4); Lymphocytes % (auto) 3.4 %; Mean Corpuscular Hemoglobin 26.4 pg (25-34); Mean Corpuscular Hgb Conc 33.3 g/dL (32-36); Mean Corpuscular Volume 79.1 fL (80-100); Mean Platelet Volume 8.7 fL (7.4-10.4); Monocytes # (auto) 0.72 K/uL (0.11-0.59); Monocytes % (auto) 3.8 %; Neutrophils # (auto) 17.49 K/uL (1.4-6.5); Neutrophils % (auto) 92.4 %; Platelet Count 254 K/uL (130-400); RDW Coefficient of Variation 15.1 % (11.5-14.5); RDW Standard Deviation 44.2 fL (36.4-46.3); Red Blood Count 4.06 M/uL (4.2-5.4); White Blood Count 18.92 K/uL (4.8-10.8)
--- NOTE | 2020-04-25 06:25 | Ultrasound Report ---
US venous doppler LE LT CLINICAL HISTORY: LLE edema, redness. h/o Factor V, Protein S defic PAIN. EDEMA. COMPARISON STUDY: 07/21/2015 FINDINGS: Real-time and color flow Doppler imaging were performed. Flow was seen within the femoral, popliteal and calf veins with no intraluminal thrombus demonstrated. The saphenous vein is patent. IMPRESSION: No evidence of deep venous thrombosis. Noted is made of several inguinal nodes measuring up to 3 cm. These potentially are reactive but should be monitored to ensure resolution. ACT 112: Negative or not required by law. The above report was generated using voice recognition software. It may contain grammatical, syntax or spelling errors. Electronically signed by: Michael Telles M.D. 04/25/2020 6:24 AM
[2020-04-25 06:37] LABS: Albumin Level 2.8 gm/dl (3.4-5.0); Aspartate Aminotransferase 10 U/L (15-37); BUN Creatinine Ratio 24.2 (10-20); Bilirubin Direct < 0.1 mg/dl (0-0.2); Blood Urea Nitrogen 17 mg/dl (7-18); Carbon Dioxide 25 mmol/L (21-32); Chloride 103 mmol/L (98-107); Creatinine Clr Calc Pharmacy 173.5 ml/min; Est GFR (African American) 130.7; Est GFR (Non-African American) 112.8; Glucose 114 mg/dl (70-99); Potassium 3.7 mmol/L (3.5-5.1); Sodium 135 mmol/L (136-145)
[2020-04-25 06:40] LABS: Alanine Aminotransferase 18 U/L (12-78); Alkaline Phosphatase 57 U/L (45-117); Bilirubin,Total 0.4 mg/dl (0.2-1); Total Protein 6.2 gm/dl (6.4-8.2)
[2020-04-25] MEDS: SERTRALINE HCL 50 MG TABLET PO SCH (08:26)
[2020-04-25] MEDS: lisinopriL 20 MG TAB PO SCH (08:27)
[2020-04-25] MEDS: FUROSEMIDE 20 MG TAB PO SCH (08:27)
[2020-04-25] MEDS: PANTOprazole 40 MG TAB PO SCH (08:27)
[2020-04-25] MEDS ORDERED: SULFAMETHOXAZOLE/TRIMETHOPRIM DS 800/160MG TAB PO SCH (09:00)
[2020-04-25] MEDS: ENOXAPARIN INJ 40 MG/0.4 ML SYR SQ SCH ×2 (11:57→21:57)
[2020-04-25 12:47] LABS: Lyme Ab IgG w/WB Rflx Negative (Negative)
[2020-04-25 12:59] LABS: Lyme Ab IgM w/WB Rflx Equivocal (Negative)
[2020-04-25] MEDS ORDERED: DOXYCYCLINE HYCLATE 100 MG CAP PO SCH (16:45)
[2020-04-25] MEDS: CEFAZOLIN 1000MG 1,000 MG/7.5 ML SYR IV SCH (17:35)
--- NOTE | 2020-04-25 17:46 | Electrocardiogram Report ---
Test Reason : Blood Pressure : / mmHG Vent. Rate : 115 BPM Atrial Rate : 115 BPM P-R Int : 122 ms QRS Dur : 084 ms QT Int : 318 ms P-R-T Axes : 045 -04 021 degrees QTc Int : 439 ms Sinus tachycardia Incomplete right bundle branch block Otherwise normal ECG No previous ECGs available Confirmed by Leeroy Donnelly ([id number]) on 04/25/2020 5:46:08 PM Referred By: REFERRED SELF Confirmed By:Javier Donnelly
--- NOTE | 2020-04-25 18:00 | Hospitalist Progress Note ---
Date of Service April 25, 2020 Assessment & Plan (1) SIRS (systemic inflammatory response syndrome): Mrs. Boyce is a 35 yo woman who was admitted 04/25 for sudden onset fever/chills, myalgias and a HARRELL. She met SIRS criteria on admission. - etiology infectious > inflammatory. venous duplex negative for DVT. - CXR neg for PNA. UA neg. COVID-19 neg. BioFire neg. Lyme equivocal, western blot pending. blood cultures obtained and no growth to date - source of infection is L LE cellulitis. progressed up leg over the course of the day. - WBC 23 on admission, down to 18 today (neurophil predominance) - patient no longer febrile, HR normal, RR normal - will change from Bactrim to IV Cefazolin, which has good gram + coverage (and reasonable spirochete coverage) - CBC in AM (2) Factor V Leiden: - venous duplex negative - Lovenox ordered for DVT ppx (3) GERD without esophagitis: - continue protonix (4) Essential hypertension: -Continue Lisinopril 20mg po daily with holding parameters (5) Anxiety: Chronic. Stable -Continue Sertraline 50mg po daily diet - heart healthy diet Ppx - Lovenox 40mg BID Code - Full Dispo - med/surg Admission and Anticipated Discharge Date Admission Date: April 24, 2020 Supervising Physician Co-Signing Physician Notes I personally examined the patient and verified all zimmer points of history and exam, discussed case, and agree with decision making with Dr Ty. leg redness worsened. extensive redness leg worsened vitals noted nad heent nc at mmm LLE diffuse erythema to about 3/4 of gonzalez no open ulcers red/hot/tender no fluctuance sepsis - from LLE cellulitis - present on admission but blossomed over last ~12hrs to make source of sepsis much more clear. doesn't really carry MRSA risks and area of infection not purulent - therefore for ease of transition to PO abx will treat w 1st gen ceph for now - if fails to improve can escalate to MRSA coverage but if not then will be able to go home on cephalexin. lyme eq uivocal - likely false positive - was sent before cellulitis really blossomed and source for septic appearance less clear. western blot pending, although reasonably likely cephalosoporins would treat as well. Subjective Patient denies any recent tick bites. No rashes (other than redness on L LE), no joint pains. feeling better than on arrival Review of Systems Neurologic: + headache(s) Physical Exam Constitutional: WD/WN, vitals as above + morbidly obese and cooperative Eyes: PERRL, conjunctivae normal, anicteric sclerae ENMT: external ear and nose normal, oropharynx normal Neck: normal visual inspection and trachea midline Respiratory: normal respiratory effort, lungs clear to auscultation Cardiovascular: RRR, no murmur, no edema Heart Sounds: normal S1 and normal S2 Extremities: no pedal edema Gastrointestinal (Abdomen): normal bowel sounds, soft, nontender, no hepatosplenomegaly Skin: + erythema (left LE. warm to the touch. Tender) Psychiatric: A+Ox3, euthymic affect Results & Data Results & Data ([facility]) Vital Signs (Past 12 Hours) Vital Signs Temp Pulse Resp BP Pulse Ox 04/25/20 15:00 37.7 C H 86 17 126/74 99 04/25/20 07:36 37 C 92 H 18 123/66 97 Resident Activity Tracking Resident Involvement: Resident Care Provided Care Provided: Adult Hospital Medicine
[2020-04-25] MEDS ORDERED: IBUPROFEN 200 MG TAB PO PRN (18:05)
[2020-04-25] MEDS ORDERED: MELATONIN 3 MG TAB PO PRN (18:06)
[2020-04-25] MEDS ORDERED: ONDANSETRON INJ 2 MG/ML 2 ML VIAL IV PRN (18:06)
--- NOTE | 2020-04-25 19:19 | Billing Data ---
Date of Service April 25, 2020 Coding Level of Care Code 85622 Subseq Hosp Care Lvl 3
[2020-04-25 23:00] VITALS: TEMP 98.6
[2020-04-26] MEDS: CEFAZOLIN 1000MG 1,000 MG/7.5 ML SYR IV SCH ×2 (00:05→09:18)
[2020-04-26 06:44] LABS: Basophils # (auto) 0.01 K/uL (0-0.2); Basophils % (auto) 0.1 %; Hematocrit (blood only) 34.1 % (37-47); Hemoglobin 11.2 g/dL (12.0-16.0); Immature Granulocytes # (auto) 0.02 K/uL (0.00-0.02); Immature Granulocytes % (auto) 0.3 %; Lymphocytes # (auto) 1.19 K/uL (1.2-3.4); Lymphocytes % (auto) 16.1 %; Mean Corpuscular Hemoglobin 26.6 pg (25-34); Mean Corpuscular Hgb Conc 32.8 g/dL (32-36); Mean Platelet Volume 8.9 fL (7.4-10.4); Monocytes # (auto) 0.51 K/uL (0.11-0.59); Monocytes % (auto) 6.9 %; Neutrophils # (auto) 5.64 K/uL (1.4-6.5); Neutrophils % (auto) 76.6 %; Platelet Count 224 K/uL (130-400); RDW Coefficient of Variation 15.3 % (11.5-14.5); RDW Standard Deviation 45.4 fL (36.4-46.3); Red Blood Count 4.21 M/uL (4.2-5.4); White Blood Count 7.37 K/uL (4.8-10.8)
[2020-04-26] MEDS ORDERED: POLYETHYLENE (MIRALAX) 17 GM PACK PO PRN (06:54)
[2020-04-26] MEDS: ACETAMINOPHEN 325 MG TAB PO PRN (07:45)
[2020-04-26 08:14] VITALS: BP 162/82; PULSE 80; O2SAT 96
[2020-04-26] MEDS: FUROSEMIDE 20 MG TAB PO SCH (09:18)
[2020-04-26] MEDS: PANTOprazole 40 MG TAB PO SCH (09:19)
[2020-04-26] MEDS: SERTRALINE HCL 50 MG TABLET PO SCH (09:19)
[2020-04-26] MEDS: lisinopriL 20 MG TAB PO SCH (09:19)
--- NOTE | 2020-04-26 10:06 | Discharge Summary ---
Date of Service April 26, 2020 Admission HPI Per Admitting Provider Elizabeth Boyce is a 35yo female with history of Factor V Leiden, Protein S deficiency, HTN, anxiety, GERD and super obesity presenting with acute onset of fevers/chills/myalgias and nausea that started suddenly today at 12:00. Also complaining of epigastric discomfort, dry cough, CP, SOB, HARRELL and arthralgias. Patient with no recent travel, no sick contacts. She works for housekeeping at [employer]. No known Covid-19 exposure. ER Course: Tylenol, Ceftriaxone, Toradol Admission Exam Per Admitting Provider General: patient resting comfortably, NAD, non-toxic in appearance, AA&O x 4, very anxious and tearful Skin: warm, dry, intact, redness of LLE as below HEENT: NC/AT, PERRL, EOMI, anicteric sclera, conjunctiva without injection, external ear normal to inspection and nontender, nares patent, moist mucus membranes, dentition intact, no oropharyngeal lesions, neck supple, trachea midline, no LAD, no thyromegaly, no JVD Heart: +S1/S2, regular, no m/r/g Lungs: equal air entry bilaterally, no rales/rhonchi/wheezes Abd: +BS, soft, NT/ND, no masses/organomegaly/ascites Ext: warm, 2+ pulses in UE/LE bilaterally, no clubbing/cyanosis, +Edema of bilateral LE, L >R with redness, warmth and tenderness of LLE Neuro: nonfocal, patient AA&O x 4, speech intact, no facial droop, moving all extremities on command with equal strength 5/5 Principal Diagnosis Cellulitis Discharge Exam Constitutional WD/WN, vitals as above + morbidly obese and cooperative Eyes PERRL, conjunctivae normal, anicteric sclerae ENMT external ear and nose normal, oropharynx normal Neck normal visual inspection and trachea midline Respiratory normal respiratory effort, lungs clear to auscultation Cardiovascular RRR, no murmur, no edema Heart Sounds: normal S1 and normal S2 Extremities: no pedal edema Gastrointestinal (Abdomen) normal bowel sounds, soft, nontender, no hepatosplenomegaly Skin + erythema (left LE. no longer warm to the touch. mildy tender) Psychiatric A+Ox3, euthymic affect Discharge Data Allergies Allergy/AdvReac Type Severity Reaction Status Date / Time latex Allergy Mild RASH ON Verified 04/24/20 19:46 ARMS FROM USING GLOVES Penicillins Allergy Mild RASH Verified 04/24/20 19:46 CHILD NICKELSULFATE Allergy Mild RASH AND Uncoded 04/24/20 19:46 IRRITATION WHEN WEARS JEWELERY OR BUCKLE WITH NICKE Consultations 04/24/20 19:54 ED Decision to Admit Stat Ordered Studies 04/24/20 18:21 CT abd pelvis IV con only Stat 04/24/20 19:16 CT head/brain wo con Stat 04/24/20 22:58 US venous doppler LE LT Urgent Hospital Course (1) SIRS (systemic inflammatory response syndrome): Mrs. Boyce is a 35 yo woman who was admitted 04/25 for sudden onset fever/chills, myalgias and a HARRELL. She met SIRS criteria on admission. She was found to have a left lower extremity cellulitis on exam, which improved with antibiotic therapy. - etiology infectious > inflammatory. venous duplex negative for DVT. - CXR neg for PNA. UA neg. COVID-19 neg. BioFire neg. Lyme equivocal, western blot pending. blood cultures obtained and no growth to date - Lyme Ig testing equivocal, western blot pending. - WBC 23 on admission, normalized by the time of discharge - source of infection is L LE cellulitis. initially progressed up the leg, but receded by the time of discharge - She was started on oral Bactrim, but this was switched IV Cefazolin when cellulitis progressed. She was directed to complete a 7 day course of Keflex upon discharge . This will provide good gram + coverage and some spirochete coverage. Outpatient items to do: follow-up on lyme western blot result. order course of Doxycycline if it returns positive. (2) Factor V Leiden: - venous duplex negative (3) GERD without esophagitis: - continue protonix (4) Essential hypertension: -Continue Lisinopril 20mg po daily (5) Anxiety: Chronic. Stable -Continue Sertraline 50mg po daily Total Time Total Time Spent Total Time Spent (In Minutes): >30 Discharge Plan Discharge Items Patient Disposition: Home - Self-Care Reason For Visit: FEVER,CHILLS, NAUSEA Discharge Diagnosis: Cellulitis Activity: Resume your previous activity Non-emergency contact: Primary Care Provider Call non-emergency contact if: your symptoms worsen and you have a fever Follow-up/Referrals: Shaina Gee CRNP [Primary Care Provider] - 05/02/20 10:20 am Diet: Carb Consistent or DM2 and Heart Healthy Addtl Attending Provider Instructions: You were hospitalized at [facility] for evaluation of fever, chills and body aches. Your white blood cell count was elevated upon your admission, which was suggestive of a possible infection. A chest Xray was obtained which showed no evidence of pneumonia. Your urine showed no evidence of infection. You were tested for COVID-19 and other respiratory viruses, but your testing panel was negative. A cat scan of your head was obtained, but this was also normal. A cellulitis, or skin infection, was found on your left ankle. Even though you did not recall getting bit by a tick, we also tested you for lyme disease, which is prevalent in [place]. Initial testing returned as "equivocal," and follow-up confirmatory testing was ordered. We treated you with IV antibiotics. Your white blood cell count normalized by the time of your discharge. Please continue to take the antibiotic Keflex 500mg three times a day for 13 more days. Due to your history of Factor V Leiden and Protein S deficiency, we ordered an ultrasound of your deep venous system to make sure you did not have a blood clot. It was negative. We recommend following up with your PCP within 1 week. Pending Studies at Discharge: Yes (Lyme Western Blot) Stand-Alone Forms: My [facility], Work/School Release (Inpt), Smoking Cessation Medications and DC Order Prescriptions: New cephalexin 500 mg capsule 500 mg PO Q6H 7 Days Qty: 28 RF: 0 Continued sertraline 50 mg tablet 50 mg PO DAILY Qty: 90 RF: 3 furosemide 20 mg tablet 10 mg PO DAILY Qty: 45 RF: 3 omeprazole 20 mg capsule,delayed release(DR/EC) 20 mg PO DAILY Qty: 90 RF: 1 lisinopril 20 mg tablet 20 mg PO DAILY Qty: 90 RF: 3 famotidine 40 mg tablet 40 mg PO HS PRN (Reason: GERD) Qty: 90 RF: 1 Discharge Orders: Discharge Order (Routine); Ordered 04/26/20 Ordered By: French Proctor/Other Patient Handouts: Discharge Instructions for Cellulitis, ED Cellulitis Admission Data Admit Date/Time: 04/24/20 22:05 Attending Provider: French Yap Admit Provider: Lisy Renner Primary Care Provider: Shaina Gee. Other Providers: Lisy Renner Other Interventions: Discharge Summary Assessment (RN) Last Done: 04/26/20 13:49 DC Date/Time DO NOT enter until pt leaves facility: 04/26/20 14:33 Supervising Physician Co-Signing Physician Notes I personally examined the patient and verified all zimmer points of history and exam, discussed case, and agree with decision making with Dr Ty. leg redness and tenderness much better. discussed chronic swelling. vitals noted nad heent nc at mmm LLE diffuse erythema now really only ~5-6 cm proximal to ankle, far less than before, less tender, no crepitis no open lesions sepsis - from LLE cellulitis - present on admission - improved nicely on cefazolin - safe for home on cephalexin - close outpt f/u - right now anticipate ~7 days treatment, but obviously this will be titrated based on how well she continues to improve venous stasis - discussed as it relates to weight, discussed "physics of weight loss" and encouraged lifestyle change. also discussed compression, mobilization. suspect lyme screen false positive. outpt f/u. Resident Activity Tracking Resident Involvement: Resident Care Provided Care Provided: Adult Hospital Medicine
[2020-04-26] MEDS: ENOXAPARIN INJ 40 MG/0.4 ML SYR SQ SCH (12:11)
--- NOTE | 2020-04-26 19:45 | Billing Data ---
Date of Service April 26, 2020 Coding Level of Care Code D/C Day Management >30 mins
[2020-04-27 14:43] LABS: 18KDIGG Band NON-REACTIVE; 23KDIGG Band NON-REACTIVE; 23KDIGM Band NON-REACTIVE; 28KDIGG Band NON-REACTIVE; 30KDIGG Band NON-REACTIVE; 39KDIGG Band NON-REACTIVE; 39KDIGM Band NON-REACTIVE; 41KDIGG Band NON-REACTIVE; 41KDIGM Band NON-REACTIVE; 45KDIGG Band NON-REACTIVE; 58KDIGG Band NON-REACTIVE; 66KDIGG Band NON-REACTIVE; 93KDIGG Band NON-REACTIVE; Lyme Antibodies, WB IgG NEGATIVE (NEGATIVE); Lyme Antibodies, WB IgM NEGATIVE (NEGATIVE)
== END 2020-04-26 14:33 | disposition home or self-care (01) | DRG 872 ==
LOC: ED 17:55 → 3E 22:05 → SUATTDRO 22:05 → 3E 22:50

== ENCOUNTER 2020-07-22 16:15 | Observation (INO) ==
[2020-07-22] MEDS ORDERED: ceFAZolin 1000MG 1,000 MG/7.5 ML SYR IV STA (16:54)
[2020-07-22] MEDS ORDERED: FAMOTIDINE 20MG IV PUSH 20 MG/5 ML SYR IV STA (16:54)
[2020-07-22] MEDS ORDERED: SODIUM CHLORIDE 0.9% 1000ML 1,000 ML IV SCH ×2 (17:00→17:55)
[2020-07-22] MEDS ORDERED: KETOROLAC 30 MG/ML VIAL IV STA (17:05)
--- NOTE | 2020-07-22 17:05 | Emergency Department Note ---
History of Present Illness General Chief complaint: Leg Injury/Pain Stated complaint: upset stomach, chills, fever Time Seen by Provider: 07/22/20 16:42 Source: patient Mode of arrival: ambulatory Limitations: no limitations History of Present Illness Provider complaint: "I think I have cellulitis again" Onset (ago): hour(s) 6 Location: lower extremity and left Radiation: non-radiation Severity: mild Pain Consistency: + constant Maximum Pain Intensity: 2 Current Pain Intensity: 2 Quality: + aching Relieved By: + none Exacerbated By: + movement Associated symptoms: + chest pain, + fever/chills and + nausea/vomiting Treatments prior to arrival: none This 35-year-old female patient presents to the emergency department today for evaluation of "I think I have cellulitis again". The patient reports history of cellulitis in her left lower extremity several months ago. She states she was admitted to the hospital for the infection. Today, she developed nausea and redness, swelling, and heat coming from the left ankle. The patient reports associated chills and nausea, but no vomiting. She does report some pain in her sternum which resolves with belching. She states this feels "like my bra is too tight". The patient denies any associated dyspnea. No coughing or wheezing. No COVID-19 exposures that she is aware of. She states her symptoms are consistent with the cellulitis she had earlier this year. She has not taken any medications for her symptoms. Home Medications Home Medications Medication Instructions Recorded Confirmed Type sertraline 50 mg tablet 50 mg PO DAILY #90 tab 08/25/19 07/22/20 Rx famotidine 40 mg tablet 40 mg PO HS PRN #90 tab 10/08/19 07/22/20 Rx omeprazole 20 mg capsule,delayed 20 mg PO DAILY #90 cap 02/22/20 07/22/20 Rx release furosemide 20 mg tablet 10 mg PO DAILY #45 tab 05/02/20 07/22/20 Rx lisinopril 20 mg tablet 20 mg PO DAILY #90 tab 05/02/20 07/22/20 Rx Allergies Allergy/AdvReac Type Severity Reaction Status Date / Time latex Allergy Mild RASH ON Verified 07/22/20 18:07 ARMS FROM USING GLOVES Penicillins Allergy Mild RASH Verified 07/22/20 18:07 CHILD NICKELSULFATE Allergy Mild RASH AND Uncoded 07/22/20 18:07 IRRITATION WHEN WEARS JEWELERY OR BUCKLE WITH NICKE Past Med/Surg History Medical History Anxiety Essential hypertension Factor V Leiden GERD without esophagitis Protein S deficiency Super obesity Surgical History History of dental surgery Family History Other No pertinent family history Denies family history of Ovarian cancer Prostate cancer Myocardial infarction Breast cancer Colorectal cancer Social History Smoking Status: Never smoker Hx Alcohol Use: No Hx Substance Use: No Preferred Language: Croatian Communication Ability: Effective 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 Beliefs That Will Affect Care: None marital status: Current Living Situation: Spouse and Family current occupational status: employed Feels Safe at Home: Yes Dental Care, Regularly: Yes Seatbelt Use: always Assistive Devices: None Review of Systems A total of 10 systems reviewed and were otherwise negative Physical Exam Vital Signs Vital Signs - 24 hr 07/22/20 16:37 07/22/20 18:47 Temperature 37.6 C H Temperature Source Oral Pulse Rate 107 H Pulse Rate [Left] 99 H Respiratory Rate 20 18 Respiratory Effort / Characteristics Non-Labored Spontaneous Non-Labored Spontaneous Respiratory Depth Normal Normal Blood Pressure 184/74 H Blood Pressure [Right Arm] 128/64 Blood Pressure Mean 110 Blood Pressure Mean [Right Arm] 85 Blood Pressure Position Lying Blood Pressure Position [Right Arm] Lying Pulse Oximetry 100 97 Oxygen Delivery Method Room Air Room Air Sepsis Recent Fever Within 48 Hours Yes Sepsis New/Unexplained Change in Mental Status No Sepsis Action Taken by Nursing No Action Required VITALS: Vitals are noted on the nurse's note and reviewed by myself. Patient is tachycardic with a heart rate of 107 bpm, febrile with a temp of 37.6, and hypertensive. She is not hypoxic. GENERAL: This is a 35-year-old obese white female, in no acute distress, nondi aphoretic, well-developed well-nourished. SKIN: Erythema, edema, and tenderness noted circumferentially around the left ankle. The skin was otherwise without rashes, erythema, edema, or bruising. Th ere is no tenting of the skin. Capillary refill less than 2 seconds. HEAD: Normocephalic atraumatic. EYES: Conjunctivae without injection, sclerae without icterus. NECK: Supple without nuchal rigidity. No lymphadenopathy. No thyromegaly. Cervical spine is nontender. No JVD. HEART: Regular rate and rhythm without murmurs gallops or rubs. LUNGS: Clear to auscultation bilaterally without wheezes, rales or rhonchi. No retractions or accessory muscle use. ABDOMEN: Positive bowel sounds x 4. Normal tympanic percussion. Soft, nontender, without masses or organomegaly. No guarding or rebound tenderness. No CVA tenderness bilaterally. MUSCULOSKELETAL: No muscle atrophy, erythema, or edema noted. Full range of motion without joint tenderness in all extremities. No tenderness to palpation. Normal gait. Strength 5/5 throughout. Negative Homans' sign. NEURO: Patient was alert and oriented to person place and time. Normal sensation to light and sharp touch. Deep tendon reflexes 2+ throughout. No focal neurological deficits. Course Course The patient was seen and evaluated as above. An order was placed for continuous cardiac monitoring. The monitor shows a sinus tachycardia at a rate of 107 bpm. IV access obtained, labs drawn. Patient medicated with 2 L IV fluids, Pepcid, Toradol, cefazolin. Imaging performed and reviewed by myself and radiologist as noted. Labs reviewed by myself. I discussed the findings with the patient at bedside. She was reassessed and notes she is overall feeling somewhat better. Repeat examination of the left lower extremity does show spreading of the erythema and edema from previous examination approximately 2 hours prior. I discussed the case with my attending. I discussed the case with the jail manager The [facility]. Administered Medications Discontinued Medications Sodium Chloride (Nss 1000ml) 1,000 mls @ 999 mls/hr IV .Q1H1M ARA Stop: 07/22/20 18:54 Last Infusion: 07/22/20 18:50 Dose: 0 mls/hr Documented by: [id number] Admin: 07/22/20 17:37 Dose: 999 mls/hr Documented by: [id number] Sodium Chloride (Nss 1000ml) 1,000 mls @ 999 mls/hr IV .Q1H1M ARA Stop: 07/22/20 17:56 Last Infusion: 07/22/20 18:50 Dose: 0 mls/hr Documented by: [id number] Admin: 07/22/20 17:41 Dose: 999 mls/hr Documented by: [id number] Cefazolin Sodium (Ancef 1000mg) 1,000 mg in 7.5 mls @ 2.5 mls/min IV NOW STA Stop: 07/22/20 16:56 Last Admin: 07/22/20 17:45 Dose: 2.5 mls/min Documented by: [id number] Famotidine (Pepcid 20mg Iv Push) 20 mg in 5 mls @ 2.5 mls/min IV NOW STA Stop: 07/22/20 16:55 Last Admin: 07/22/20 17:37 Dose: 2.5 mls/min Documented by: [id number] Ketorolac Tromethamine (Ketorolac 30 Mg/Ml Vial) 30 mg IV NOW STA Stop: 07/22/20 17:06 Last Admin: 07/22/20 17:41 Dose: 30 mg Documented by: [id number] Ondansetron HCl (Ondansetron Inj 2 Mg/Ml 2 Ml Vial) 4 mg IV NOW STA Stop: 07/22/20 17:29 Last Admin: 07/22/20 17:40 Dose: 4 mg Documented by: [id number] Medical Decision Making Differential Diagnosis Cellulitis, abscess, MRSA infection, DVT, necrotizing fasciitis, dermatitis, drug eruption, allergic reaction, as well as other pathologies. Medical Records Attestation: I reviewed the patient's medical records. Home Medications Current Medication List: was personally reviewed by me Laboratory Data Attestation: I reviewed the patient's lab results. Leukocytosis of 21,00 with shift 0. No anemia or thrombocytopenia. Coags normal. Renal, [place] function electrolytes without significant abnormality. Troponin negative. Procalcitonin 0.09. Lactic acid 1.7. Result diagrams: 07/22/20 17:26 07/22/20 17:26 Lab Results 07/22/20 07/22/20 07/22/20 Range/Units 17:26 17:26 17:26 WBC 21.61 H (4.8-10.8) K/uL RBC 4.69 (4.2-5.4) M/uL Hgb 12.3 (12.0-16.0) g/dL Hct 37.8 (37-47) % MCV 80.6 (80-100) fL MCH 26.2 (25-34) pg MCHC 32.5 (32-36) g/dL RDW Std Deviation 43.6 (36.4-46.3) fL RDW Coeff of Libby 14.9 H (11.5-14.5) % Plt Count 298 (130-400) K/uL MPV 8.8 (7.4-10.4) fL Immature Gran % (Auto) 0.3 % Neut % (Auto) 93.5 % Lymph % (Auto) 3.6 % [place] % (Auto) 2.6 % Eos % (Auto) 0.0 % Baso % (Auto) 0.0 % Neut # (Auto) 20.18 H (1.4-6.5) K/uL Lymph # (Auto) 0.78 L (1.2-3.4) K/uL [place] # (Auto) 0.57 (0.11-0.59) K/uL Eos # (Auto) 0.00 (0-0.5) K/uL Baso # (Auto) 0.01 (0-0.2) K/uL Immature Gran # (Auto) 0.07 H (0.00-0.02) K/uL RBC Morphology Unremarkable PT 10.7 (9.0-12.0) Seconds INR 1.0 (0.9-1.1) APTT 28.2 (21.0-31.0) Seconds PTT Ratio 1.0 Sodium (136-145) mmol/L Potassium (3.5-5.1) mmol/L Chloride (98-107) mmol/L Carbon Dioxide (21-32) mmol/L Anion Gap (3-11) BUN (7-18) mg/dl Creatinine (0.6-1.2) mg/dl Est Cr Clr Drug Dosing ml/min Est GFR ( Amer) Est GFR (Non-Af Amer) BUN/Creatinine Ratio (10-20) Glucose (70-99) mg/dl Lactate (0.4-2.0) mmol/L Calcium (8.5-10.1) mg/dl Magnesium (1.8-2.4) mg/dl Total Bilirubin (0.2-1) mg/dl AST (15-37) U/L ALT (12-78) U/L Alkaline Phosphatase (45-117) U/L Troponin I (0-0.045) ng/ml Total Protein (6.4-8.2) gm/dl Albumin (3.4-5.0) gm/dl Globulin (2.5-4.0) gm/dl Albumin/Globulin Ratio (0.9-2) Procalcitonin 0.09 (0-0.5) ng/ml 07/22/20 07/22/20 Range/Units 17:26 17:26 WBC (4.8-10.8) K/uL RBC (4.2-5.4) M/uL Hgb (12.0-16.0) g/dL Hct (37-47) % MCV (80-100) fL MCH (25-34) pg MCHC (32-36) g/dL RDW Std Deviation (36.4-46.3) fL RDW Coeff of Libby (11.5-14.5) % Plt Count (130-400) K/uL MPV (7.4-10.4) fL Immature Gran % (Auto) % Neut % (Auto) % Lymph % (Auto) % [place] % (Auto) % Eos % (Auto) % Baso % (Auto) % Neut # (Auto) (1.4-6.5) K/uL Lymph # (Auto) (1.2-3.4) K/uL [place] # (Auto) (0.11-0.59) K/uL Eos # (Auto) (0-0.5) K/uL Baso # (Auto) (0-0.2) K/uL Immature Gran # (Auto) (0.00-0.02) K/uL RBC Morphology PT (9.0-12.0) Seconds INR (0.9-1.1) APTT (21.0-31.0) Seconds PTT Ratio Sodium 133 L (136-145) mmol/L Potassium 4.1 (3.5-5.1) mmol/L Chloride 99 (98-107) mmol/L Carbon Dioxide 27 (21-32) mmol/L Anion Gap 7.0 (3-11) BUN 16 (7-18) mg/dl Creatinine 0.77 (0.6-1.2) mg/dl Est Cr Clr Drug Dosing 150.9 ml/min Est GFR ( Amer) 115.9 Est GFR (Non-Af Amer) 100.0 BUN/Creatinine Ratio 20.6 H (10-20) Glucose 116 H (70-99) mg/dl Lactate 1.7 (0.4-2.0) mmol/L Calcium 9.1 (8.5-10.1) mg/dl Magnesium 1.7 L (1.8-2.4) mg/dl Total Bilirubin 0.3 (0.2-1) mg/dl AST 11 L (15-37) U/L ALT 21 (12-78) U/L Alkaline Phosphatase 68 (45-117) U/L Troponin I < 0.015 (0-0.045) ng/ml Total Protein 7.8 (6.4-8.2) gm/dl Albumin 3.7 (3.4-5.0) gm/dl Globulin 4.1 H (2.5-4.0) gm/dl Albumin/Globulin Ratio 0.9 (0.9-2) Procalcitonin (0-0.5) ng/ml Imaging Data Radiologist's Impression: XR chest 1V portable HISTORY: 35 years-old Female SEPSIS acute sepsis COMPARISON: Chest radiograph 04/24/2020 TECHNIQUE: Portable AP view of the chest FINDINGS: Cardiomediastinal and hilar silhouettes are unchanged. No pneumothorax, pleural effusion, airspace consolidation or overt pulmonary edema. Bones of the chest appear grossly intact. IMPRESSION: No acute process. ACT 112: Negative or not required by law. The above report was generated using voice recognition software. It may contain grammatical, syntax or spelling errors. Electronically signed by: Jose Mccallum M.D. 07/22/2020 7:09 PM US venous doppler LE LT HISTORY: 35 years-old Female pain, redness, swelling, hx. factor V Leiden acute pain and swelling of the left lower extremity COMPARISON: Duplex venous Doppler study 04/25/2020 TECHNIQUE: Multiple real-time sonographic images of the left lower extremity venous structures were obtained assessing grayscale appearance, color and spectral flow FINDINGS: Prominent and mildly enlarged lymph nodes of the left inguinal chain are redemonstrated, largest of which measures 4.2 x 1.9 cm, unchanged from comparison. Normal flow, compressibility, phasicity and augmentation of the left lower extremity deep venous structures. Calf veins are suboptimally visualized. IMPRESSION: No sonographic evidence of deep venous thrombosis. ACT 112: Negative or not required by law. The above report was generated using voice recognition software. It may contain grammatical, syntax or spelling errors. Electronically signed by: Jose Mccallum M.D. 07/22/2020 6:46 PM ECG Data Attestation: I personally reviewed and interpreted this ECG as follows: Indication: + tachycardia Rate (beats per minute): 99 Rhythm: + normal sinus ECG Intervals/blocks: + Normal QRS and + Normal QT-c ECG Kane: + Normal ECG ST segments: no ST depression, no ST elevation and no T-wave inversions Comparison ECG Date: from (04/24/2020) Change: no significant change Blood Pressure Blood Pressure Findings: Elevated blood pressure Blood Pressure Disposition: elevated BP felt to be situational MDM Narrative This 35-year-old female patient presents to the emergency department today for evaluation of cellulitis of the left lower extremity. She was febrile and tachycardic upon initial arrival. The cellulitis does seem to have rapidly spread, with onset of symptoms just this afternoon. Even through her ED visit, the redness and swelling of the extremity has spread. We did discuss the potential for trial outpatient treatment with dalbavancin versus p.o. antibiotics, but ultimately utilizing shared decision-making, we did elect to keep the patient for hospitalization and ongoing management given her history and the rapid progression of the infection. The patient will be admitted to the [facility] hospitalist service. Please see hospitalist dictation regarding ongoing management care of this patient. The chart was completed utilizing [employer] voice recognition software. Grammatical errors, random word insertions, pronoun errors, and incomplete sentences are an occasional consequence of this system due to software limitatio ns, ambient noise, and hardware issues. Any formal questions or concerns about the content, text, or information contained within the body of this dictation should be directly addressed to the provider for clarification. Impression & Plan Cellulitis of left lower extremity, Factor V Leiden, Fever, Tachycardia, Nausea Discharge Plan Visit Data Chief Complaint: Leg Injury/Pain Stated Complaint: upset stomach, chills, fever ED Provider: Kyler Spangler ED Midlevel Provider: Maryam Alexandre Discharge Problem: Cellulitis of left lower extremity, Factor V Leiden, Fever, Tachycardia, Nausea Patient Disposition: Admitted As Inpatient Forms Stand Alone Forms: [facility] Prescriptions Prescriptions: No Action sertraline 50 mg tablet 50 mg PO DAILY Qty: 90 RF: 3 omeprazole 20 mg capsule,delayed release(DR/EC) 20 mg PO DAILY Qty: 90 RF: 1 famotidine 40 mg tablet 40 mg PO HS PRN (Reason: GERD) Qty: 90 RF: 1 lisinopril 20 mg tablet 20 mg PO DAILY Qty: 90 RF: 3 furosemide 20 mg tablet 10 mg PO DAILY Qty: 45 RF: 3 Referrals Referrals: Anny Ryder MD [Primary Care Provider] - Discharge Problem: Fever Qualifiers: Fever type: unspecified Qualified Code(s): R50.9 - Fever, unspecified
[2020-07-22] MEDS ORDERED: ONDANSETRON INJ 2 MG/ML 2 ML VIAL IV STA ×2 (17:28→21:10)
[2020-07-22 17:36] LABS: Hematocrit (blood only) 37.8 % (37-47); Hemoglobin 12.3 g/dL (12.0-16.0); Mean Corpuscular Hemoglobin 26.2 pg (25-34); Mean Corpuscular Hgb Conc 32.5 g/dL (32-36); Mean Corpuscular Volume 80.6 fL (80-100); Mean Platelet Volume 8.8 fL (7.4-10.4); Platelet Count 298 K/uL (130-400); RDW Coefficient of Variation 14.9 % (11.5-14.5); RDW Standard Deviation 43.6 fL (36.4-46.3); Red Blood Count 4.69 M/uL (4.2-5.4); White Blood Count 21.61 K/uL (4.8-10.8)
[2020-07-22 17:51] LABS: Partial Thromboplastin Time 28.2 Seconds (21.0-31.0); Prothrombin Time 10.7 Seconds (9.0-12.0)
[2020-07-22 17:54] LABS: Alanine Aminotransferase 21 U/L (12-78); Albumin Level 3.7 gm/dl (3.4-5.0); Aspartate Aminotransferase 11 U/L (15-37); BUN Creatinine Ratio 20.6 (10-20); Blood Urea Nitrogen 16 mg/dl (7-18); Calcium 9.1 mg/dl (8.5-10.1); Carbon Dioxide 27 mmol/L (21-32); Chloride 99 mmol/L (98-107); Creatinine Clr Calc Pharmacy 150.9 ml/min; Est GFR (African American) 115.9; Glucose 116 mg/dl (70-99); Magnesium 1.7 mg/dl (1.8-2.4); Potassium 4.1 mmol/L (3.5-5.1); Sodium 133 mmol/L (136-145)
[2020-07-22 17:58] LABS: Albumin Globulin Ratio 0.9 (0.9-2); Alkaline Phosphatase 68 U/L (45-117); Bilirubin,Total 0.3 mg/dl (0.2-1); Globulin 4.1 gm/dl (2.5-4.0); Total Protein 7.8 gm/dl (6.4-8.2); Troponin I < 0.015 ng/ml (0-0.045)
[2020-07-22 18:11] LABS: Basophils # (auto) 0.01 K/uL (0-0.2); Immature Granulocytes # (auto) 0.07 K/uL (0.00-0.02); Immature Granulocytes % (auto) 0.3 %; Lymphocytes # (auto) 0.78 K/uL (1.2-3.4); Lymphocytes % (auto) 3.6 %; Monocytes # (auto) 0.57 K/uL (0.11-0.59); Monocytes % (auto) 2.6 %; Neutrophils # (auto) 20.18 K/uL (1.4-6.5); Neutrophils % (auto) 93.5 %; RBC Morphology Unremarkable
--- NOTE | 2020-07-22 18:47 | Ultrasound Report ---
US venous doppler LE LT HISTORY: 35 years-old Female pain, redness, swelling, hx. factor V Leiden acute pain and swelling of the left lower extremity COMPARISON: Duplex venous Doppler study 04/25/2020 TECHNIQUE: Multiple real-time sonographic images of the left lower extremity venous structures were o btained assessing grayscale appearance, color and spectral flow FINDINGS: Prominent and mildly enlarged lymph nodes of the left inguinal chain are redemonstrated, largest of w hich measures 4.2 x 1.9 cm, unchanged from comparison. Normal flow, compressibility, phasicity and augmentation of the left lower extremity deep venous stru ctures. Calf veins are suboptimally visualized. IMPRESSION: No sonographic evidence of deep venous thrombosis. ACT 112: Negative or not required by law. The above report was generated using voice recognition software. It may contain grammatical, syntax o r spelling errors. Electronically signed by: Jose Mccallum M.D. 07/22/2020 6:46 PM
--- NOTE | 2020-07-22 19:10 | XRay Report ---
XR chest 1V portable HISTORY: 35 years-old Female SEPSIS acute sepsis COMPARISON: Chest radiograph 04/24/2020 TECHNIQUE: Portable AP view of the chest FINDINGS: Cardiomediastinal and hilar silhouettes are unchanged. No pneumothorax, pleural effusion, airspace co nsolidation or overt pulmonary edema. Bones of the chest appear grossly intact. IMPRESSION: No acute process. ACT 112: Negative or not required by law. The above report was generated using voice recognition software. It may contain grammatical, syntax o r spelling errors. Electronically signed by: Jose Mccallum M.D. 07/22/2020 7:09 PM
--- NOTE | 2020-07-22 20:01 | History & Physical Report ---
Date of Service July 22, 2020 Assessment & Plan (1) Cellulitis of left lower extremity: Elizabeth is a 35-year-old female with a past medical history of factor V Leiden/protein S deficiency without history of blood clots, history of cellulitis 2 months ago, and obesity who presents with left lower extremity erythema and swelling of 1 day consistent with cellulitis. LLE Cellulitis - Cefazolin 2g Q8H Area marked Blood cultures pending Leukocytosis on admission, temperature 37.6. Patient took 800 mg of ibuprofen approximately 6 hours prior Admit for observation Ultrasound shows no evidence of left lower extremity thrombus History of factor V Leiden/protein S deficiency No personal history of blood clots Ultrasound negative as above Follow clinically Hypertension Continue lisinopril 20 mg Creatinine at baseline GERD Continue omeprazole May take famotidine 40 mg p.o. nightly as needed Depression Continue sertraline 50 mg daily DVT prophylaxis: Enoxaparin weight adjusted CODE STATUS: Full code Diet: Regular Disposition: Medical for observation History of Present Illness Chief Complaint: Cellulitis Primary Care Provider: Anny Ryder MD Audra is a 35-year-old female with a past medical history of factor V Leiden, protein S deficiency, obesity, and one episode of left lower extremity cellulitis 2 months ago who presents with 1 day of left lower extremity redness, swelling, erythema, chills, nausea, and feeling of sweats. Patient reports she was in her usual state of health this morning, when she was at work around 11 PM she developed some fatigue and noticed a rash on her left gonzalez which was red and circumferential. Around 2 PM she developed chills and worsening fatigue, and noted that the rash on her left gonzalez had grown, was warm, and tender. It continued to spread slightly over the afternoon and she is concerned about cellulitis after a similar episode in April 2020 which caused her to present from work at [employer] Advise Only to [facility] ED. She reports no history of injury or trauma to her extremities, no animal or cat bites, and no history of ulcerations. She has a dog, but has not had any plate injuries. She has not had any ulcerations of her legs previously, and does not have a history of diabetes mellitus. She reports since her last episode of cellulitis her left extremity tends to be slightly more swollen than her right. She has a known history of factor V Leiden and factor S deficiency which was discovered on genetic testing after her uncle had a stroke while driving on the road. She has not had any history of strokes or blood clots to her knowledge. She received a lower extremity Doppler on admission which did not show evidence of a left lower extremity clot. She endorses fatigue, chills, feeling feverish but has not checked her temperature at home, nausea without vomiting, and cellulitis as described. Denies diarrhea, constipation. Medical history: Reviewed Allergies: Reviewed penicillin, historical allergy as a child not sure of the reaction. Has tolerated Keflex in the past without adverse effect Social history: Denies tobacco, alcohol,, recreational drug use. Lives at home with her and 1 child. No sick contacts, no one sick in the home. Safe at home. Surgical history: Reviewed Medications: Reviewed CODE STATUS: Full code Allergies Allergy/AdvReac Type Severity Reaction Status Date / Time latex Allergy Mild RASH ON Verified 07/22/20 18:07 ARMS FROM USING GLOVES Penicillins Allergy Mild RASH Verified 07/22/20 18:07 CHILD NICKELSULFATE Allergy Mild RASH AND Uncoded 07/22/20 18:07 IRRITATION WHEN WEARS JEWELERY OR BUCKLE WITH NICKE Home Medications Home Medications Medication Instructions Recorded Confirmed Type sertraline 50 mg tablet 50 mg PO DAILY #90 tab 08/25/19 07/22/20 Rx famotidine 40 mg tablet 40 mg PO HS PRN #90 tab 10/08/19 07/22/20 Rx omeprazole 20 mg capsule,delayed 20 mg PO DAILY #90 cap 02/22/20 07/22/20 Rx release furosemide 20 mg tablet 10 mg PO DAILY #45 tab 05/02/20 07/22/20 Rx lisinopril 20 mg tablet 20 mg PO DAILY #90 tab 05/02/20 07/22/20 Rx Past Med/Surg History Medical History (Updated 07/23/20 @ 15:01 by BESSY Mitchell) Anxiety Essential hypertension Factor V Leiden GERD without esophagitis Protein S deficiency Super obesity Surgical History History of dental surgery Family History Other No pertinent family history Denies family history of Ovarian cancer Prostate cancer Myocardial infarction Breast cancer Colorectal cancer Social History Smoking Status: Never smoker Second Hand Exposure: No; Do You Dip or Chew Tobacco: No; Hx Alcohol Use: No Hx Substance Use: No Preferred Language: Guyanese Communication Ability: Effective Computer Repairer Required: No Beliefs That Will Affect Care: None marital status: Current Living Situation: Spouse and Family current occupational status: employed Other Information That Helps Us Care for You: No Feels Safe at Home: Yes Safety Concerns: Feels Safe At This Time Dental Care, Regularly: Yes Seatbelt Use: always Assistive Devices: None Review of Systems Review of Systems: All systems reviewed & are unremarkable except as noted in HPI & below Physical Exam Physical Exam: General: A&Ox3. NAD. Cooperative. Obese. HEENT: Atraumatic, normocephalic. Pulm: CTAB A&P. -wheezes, -rales, -rhonchi. Symmetrical chest rise. No increase work of breathing. No respiratory distress. Cardiac: RRR, -mrg. Radial pulses intact and symmetrical. Abdominal: Nontender, nondistended, soft. BS present. Extremity: Left ankle with swelling, erythema, and tenderness to palpation extending approximately 7 cm from the ankle. No spread of erythema into the foot. No streaking. PT pulses intact. No cording. Homans negative. Sensation intact to soft touch in fingers and toes bilaterally without deficit or asymmetry, plantar flexion/extension, hip flexion, floor covering installer strength, elbow flexion/extension 5/5 without deficit or asymmetry. Results & Data Results & Data ([facility]) Vital Signs (Past 12 Hours) Vital Signs Temp Pulse Pulse Resp BP BP Pulse Ox 07/22/20 18:47 99 H 18 128/64 97 07/22/20 16:37 37.6 C H 107 H 20 184/74 H 100 Code Status & VTE Plan VTE Prophylaxis Plan VTE Prophylaxis will be ordered: Yes Supervising Physician Co-Signing Physician Notes Attending addendum: I have physically seen this patient, have supervised the medical residents activities, and agree with the H&P unless as otherwise noted. Assessment and Plan: Cellulitis of left lower extremity- Cefazolin 2 g IV every 8 hours Neutrophilic leukocytosis, follow serial laboratories. Venous Doppler negative for DVT Hypertension- Continue lisinopril 20 mg daily with hold parameters GERD- Change omeprazole to pantoprazole. Depression - Continue sertraline 50 mg daily Remaining orders and notations as noted Resident Activity Tracking Resident Involvement: Resident Care Provided Care Provided: Adult Hospital Medicine
[2020-07-22] MEDS ORDERED: ONDANSETRON INJ 2 MG/ML 2 ML VIAL ONE (21:06)
[2020-07-22] MEDS ORDERED: FAMOTIDINE 40 MG TABLET PO PRN (21:34)
[2020-07-22] MEDS ORDERED: ACETAMINOPHEN 325 MG TAB PO PRN (21:34)
[2020-07-22] MEDS ORDERED: ACETAMINOPHEN 325 MG TAB ONE (21:52)
[2020-07-22 22:47] LABS: Appearance Urine Clear (Clear); Bilirubin Urine Negative (Negative); Blood Urine Negative (Negative); Color Urine Dark Yellow; Glucose Urine UA Negative (Negative); Ketones Urine Negative (Negative); Leukocyte Esterase Urine Negative (Negative); Nitrite Urine Negative (Negative); Protein Urine Negative (Negative); Specific Gravity Urine 1.026 (1.000-1.030); Urobilinogen Urine Negative (Negative); pH Urine 6.5 (4.5-7.5)
[2020-07-22] MEDS: ENOXAPARIN 80 MG/0.8 ML SYR SQ SCH (23:36)
[2020-07-23] MEDS: ceFAZolin 2000MG 2,000 MG/15 ML SYR IV SCH ×2 (01:52→09:30)
[2020-07-23] MEDS ORDERED: ONDANSETRON INJ 2 MG/ML 2 ML VIAL IV PRN (04:29)
[2020-07-23] MEDS ORDERED: ONDANSETRON INJ 2 MG/ML 2 ML VIAL ONE (04:39)
--- NOTE | 2020-07-23 08:04 | Electrocardiogram Report ---
Test Reason : Blood Pressure : / mmHG Vent. Rate : 099 BPM Atrial Rate : 099 BPM P-R Int : 130 ms QRS Dur : 088 ms QT Int : 340 ms P-R-T Axes : 056 000 015 degrees QTc Int : 436 ms Normal sinus rhythm Incomplete right bundle branch block Poor R wave progression, consider anterior OR vs. lead placement vs. LVH Abnormal ECG When compared with ECG of 24-APR-2020 18:26, No significant change was found Confirmed by Doron Graff ([id number]) on 07/23/2020 8:03:54 AM Referred By: Anh El Confirmed By:Doron Graff
[2020-07-23] MEDS: lisinopril 20 MG TAB PO SCH (09:31)
[2020-07-23] MEDS: PANTOprazole 40 MG TAB PO SCH (09:31)
[2020-07-23] MEDS: FUROSEMIDE 20 MG TAB PO SCH (09:31)
[2020-07-23] MEDS: SERTRALINE HCL 50 MG TABLET PO SCH (09:32)
--- NOTE | 2020-07-23 14:54 | Hospitalist Progress Note ---
Date of Service July 23, 2020 Assessment & Plan (1) Cellulitis of left lower extremity: LLE Cellulitis discontinue cefazolin and start daptomycin. Patient had very similar episode in April with resurgence of infection a week after completing Keflex and then completed a week of Bactrim Blood cultures pending Leukocytosis on admission, repeat cbc am Ultrasound shows no evidence of left lower extremity thrombus (2) Factor V Leiden: LLL doppler negative for dvt Enoxaparin for DVT proph (3) Essential hypertension: Continue lisinopril (4) Depression: Continue sertraline 50 mg daily Admission and Anticipated Discharge Date Admission Date: July 22, 2020 Subjective Ms. Boyce is feeling better, no longer having systemic symptoms. Her rash is tender but not painful, slightly extends past line of demarcation. ROS Constitutional: no chills, aches, sweats or fever Respiratory: no sob,cough, sputum, or wheezing Cardiac: no chest pain, palpitations, edema, orthopnea or lightheadedness GI: no abdominal pain, nausea, vomiting, diarrhea or constipation : no dysuria or hesitancy Extremities: no joint pain or weakness Skin: see HPI All other systems reviewed and negative Physical Exam Physical Exam: General: no distress Eyes: normal inspection, PERLL Respiratory: chest non tender, clear to auscultation, normal breath sounds, no respiratory distress, no accessory muscle use Cardiac: regular rate and rhythm, no rub or gallop, no murmur, no edema, no jvd GI/: active bowel sounds, no abd pain or tenderness, soft, non distended Extremities: normal range of motion, normal strength, non tender Neuro/Psych: alert and oriented x 3, normal mood and affect Skin: normal color, dry, left leg with erythema extending from ankle to gonzalez Results & Data Results & Data ([facility]) Vital Signs (Past 12 Hours) Vital Signs Temp Pulse Resp BP Pulse Ox 07/23/20 06:56 37.4 C 90 16 123/67 96 07/23/20 05:56 37.8 C H 07/23/20 04:45 39.4 C H 07/23/20 03:52 38.3 C H PG Care Time/CCT Total # of Minutes Spent Total Time Spent with Patient: Total time spent is greater than 50% in coordination of care (as documented) at patient's floor/unit and/or counseling patient: Coding Level of Care Code 97559 Subseq Hosp Care Lvl 2 Diagnoses Cellulitis of left lower extremity L03.116 Factor V Leiden D68.51 Essential hypertension I10 Depression F32.9
[2020-07-23] MEDS: DAPTOmycin 375 MG in SYRINGE 0 ML IV SCH (15:28)
[2020-07-23] MEDS: ENOXAPARIN 80 MG/0.8 ML SYR SQ SCH (20:00)
--- NOTE | 2020-07-23 21:19 | Billing Data ---
Date of Service July 23, 2020 Coding Level of Care Code 91203 OBS Care - Level 3
[2020-07-24 05:52] LABS: Hematocrit (blood only) 35.5 % (37-47); Hemoglobin 11.3 g/dL (12.0-16.0); Mean Corpuscular Hgb Conc 31.8 g/dL (32-36); Mean Corpuscular Volume 81.8 fL (80-100); Mean Platelet Volume 8.6 fL (7.4-10.4); Platelet Count 234 K/uL (130-400); RDW Coefficient of Variation 15.1 % (11.5-14.5); RDW Standard Deviation 45.1 fL (36.4-46.3); Red Blood Count 4.34 M/uL (4.2-5.4)
[2020-07-24 07:00] LABS: BUN Creatinine Ratio 16.1 (10-20); Calcium 8.2 mg/dl (8.5-10.1); Creatinine Clr Calc Pharmacy 200.7 ml/min; Est GFR (African American) 138.4; Est GFR (Non-African American) 119.4; Magnesium 2.2 mg/dl (1.8-2.4); Potassium 3.9 mmol/L (3.5-5.1)
[2020-07-24] MEDS: SERTRALINE HCL 50 MG TABLET PO SCH (09:12)
[2020-07-24] MEDS: lisinopril 20 MG TAB PO SCH (09:12)
[2020-07-24] MEDS: FUROSEMIDE 20 MG TAB PO SCH (09:12)
[2020-07-24] MEDS: PANTOprazole 40 MG TAB PO SCH (09:51)
--- NOTE | 2020-07-24 12:42 | Discharge Summary ---
Date of Service July 24, 2020 Admission HPI Per Admitting Provider Audra is a 35-year-old female with a past medical history of factor V Leiden, protein S deficiency, obesity, and one episode of left lower extremity cellulitis 2 months ago who presents with 1 day of left lower extremity redness, swelling, erythema, chills, nausea, and feeling of sweats. Patient reports she was in her usual state of health this morning, when she was at work around 11 PM she developed some fatigue and noticed a rash on her left gonzalez which was red and circumferential. Around 2 PM she developed chills and worsening fatigue, and noted that the rash on her left gonzalez had grown, was warm, and tender. It continued to spread slightly over the afternoon and she is concerned about cellulitis after a similar episode in April 2020 which caused her to present from work at [employer] to [facility] ED. She reports no history of injury or trauma to her extremities, no animal or cat bites, and no history of ulcerations. She has a dog, but has not had any plate injuries. She has not had any ulcerations of her legs previously, and does not have a history of diabetes mellitus. She reports since her last episode of cellulitis her left extremity tends to be slightly more swollen than her right. She has a known history of factor V Leiden and factor S deficiency which was discovered on genetic testing after her uncle had a stroke while driving on the road. She has not had any history of strokes or blood clots to her knowledge. She received a lower extremity Doppler on admission which did not show evidence of a left lower extremity clot. She endorses fatigue, chills, feeling feverish but has not checked her temperature at home, nausea without vomiting, and cellulitis as described. Denies diarrhea, constipation. Medical history: Reviewed Allergies: Reviewed penicillin, historical allergy as a child not sure of the reaction. Has tolerated Keflex in the past without adverse effect Social history: Denies tobacco, alcohol,, recreational drug use. Lives at home with her and 1 child. No sick contacts, no one sick in the home. Safe at home. Surgical history: Reviewed Medications: Reviewed CODE STATUS: Full code Principal Diagnosis cellulitis Discharge Exam Constitutional WD/WN, vitals as above Respiratory normal respiratory effort, lungs clear to auscultation Cardiovascular RRR, no murmur, no edema Gastrointestinal (Abdomen) normal bowel sounds, soft, nontender, no hepatosplenomegaly Musculoskeletal no cyanosis or clubbing, extremities motor strength 5/5 Skin no rashes, warm and dry Neurologic moves all extremities and awake Psychiatric A+Ox3, euthymic affect Discharge Data Allergies Allergy/AdvReac Type Severity Reaction Status Date / Time latex Allergy Mild RASH ON Verified 07/22/20 18:07 ARMS FROM USING GLOVES Penicillins Allergy Mild RASH Verified 07/22/20 18:07 CHILD NICKELSULFATE Allergy Mild RASH AND Uncoded 07/22/20 18:07 IRRITATION WHEN WEARS JEWELERY OR BUCKLE WITH NICKE Consultations 07/22/20 19:17 ED Decision to Admit Stat Ordered Studies 07/22/20 16:54 US venous doppler LE LT Stat Hospital Course (1) Cellulitis of left lower extremity: LLE Cellulitis discontinued cefazolin and started daptomycin - will have daptomycin x 2 doses before going home. Patient had very similar episode in April with resurgence of infection a week after completing Keflex and then completed a week of Bactrim. No fever in over 24 hours. Her leukocytosis has resolved and is 6 today and her rash is improved, has receded behind line of demarcation. Blood cultures ngtd x 24 hours Ultrasound shows no evidence of left lower extremity thrombus - Home with 2 weeks of Bactrim and Keflex (2) Factor V Leiden: LLL doppler negative for dvt Enoxaparin for DVT proph (3) Essential hypertension: Continue lisinopril (4) Depression: Continue sertraline 50 mg daily (5) Morbid obesity: Total Time Total Time Spent Total Time Spent (In Minutes): greater than 30 minutes Discharge Plan Discharge Items Patient Disposition: Home - Self-Care Reason For Visit: CELLULITIS Discharge Diagnosis: Cellulitis Activity: Resume your previous activity Activity Comment: gradually as tolerated Non-emergency contact: Primary Care Provider Call non-emergency contact if: you have any medication questions, your symptoms worsen and you have a fever Follow-up/Referrals: Anny Ryder MD [Primary Care Provider] - (Follow up one week ) Diet: Regular Addtl Attending Provider Instructions: (1) Cellulitis of left lower extremity: You will complete two weeks of antibiotics total with a prescription for Bactrim and cephalexin (Keflex) for 12 more days. You can start these medications tomorrow Once your cellulitis is healed you can wear SACHIN hose to help with the swelling in your legs. Discuss with your primary care provider if an infectious disease referral may be beneficial given your frequent infections Pending Studies at Discharge: Yes Studies:: A1c Stand-Alone Forms: [facility], Work/School Release (Inpt), Smoking Cessation Medications and DC Order Prescriptions: New sulfamethoxazole-trimethoprim [Bactrim DS] 800-160 mg tablet 2 tab PO BID 12 Days Qty: 48 RF: 0 cephalexin 500 mg capsule 500 mg PO Q6H 12 Days Qty: 48 RF: 0 Continued sertraline 50 mg tablet 50 mg PO DAILY Qty: 90 RF: 3 omeprazole 20 mg capsule,delayed release(DR/EC) 20 mg PO DAILY Qty: 90 RF: 1 famotidine 40 mg tablet 40 mg PO HS PRN (Reason: GERD) Qty: 90 RF: 1 lisinopril 20 mg tablet 20 mg PO DAILY Qty: 90 RF: 3 furosemide 20 mg tablet 10 mg PO DAILY Qty: 45 RF: 3 Discharge Orders: Discharge Order (Routine); Ordered 07/24/20 Ordered By: Wandy Proctor/Other Patient Handouts: Sulfamethoxazole Trimethoprim [id number]-TMP tablets Admission Data Admit Date/Time: 07/22/20 20:00 Attending Provider: Manjit Ty Admit Provider: Edmundo Rubin Primary Care Provider: Anny Ryder Other Providers: Fco Mcelroy Other Interventions: Discharge Summary Assessment (RN) Last Done: 07/24/20 12:52 Supervising Physician Co-Signing Physician Notes Patient seen and examined on the day of discharge. I agree with the discharge summary by Wandy DOHERTY. I have reviewed the chart including labs, imaging and plans for discharge. patient feeling better, no fever for over 24 hours, erythema is receding from original borders skin is warm but not hot discussed recent history with the exact same area of cellulitis in April, just two months ago that responded to Keflex but then required a course of Bactrim she was okay for about 6 weeks, now with recurrent cellulitis - Left lower extremity cellulitis: responded quickly to Daptomycin, will give a second dose of Dapto IV prior to discharge send home on Keflex and Bactrim to complete 2 weeks unclear as to why she keeps getting cellulitis, doppler was negative for DVT she does have some edema/lymphedema, no obvious breaks in the skin once infection completely treated would recommend compression stockings - Obesity: PHOTO SPECIALIST discussed weight loss options, patient is interested in trying intermittent fasting follow up with PCP to be followed, make sure she is losing weight in a healt hy manner Coding Level of Care Code D/C Day Management >30 mins Diagnoses Cellulitis of left lower extremity L03.116 Factor V Leiden D68.51 Essential hypertension I10 Depression F32.9 Morbid obesity E66.01
[2020-07-24] MEDS: DAPTOmycin 375 MG in SYRINGE 0 ML IV SCH (13:49)
[2020-07-25 05:41] LABS: Estimated Average Glucose 128 mg/dl; Hemoglobin A1C 6.1 % (4.5-5.6)
== END 2020-07-24 17:07 | disposition home or self-care (01) ==
LOC: ED 16:15 → 3N 16:15 → SUATTDRO 20:00 → 3N 20:57
DX: I10 Essential (primary) hypertension; D68.51 Activated protein C resistance; K21.9 Gastro-esophageal reflux disease without esophagitis; F41.9 Anxiety disorder, unspecified; F32.9 Major depressive disorder, single episode, unspecified; Z88.0 Allergy status to penicillin; E66.01 Morbid (severe) obesity due to excess calories; Z91.040 Latex allergy status; Z79.899 Other long term (current) drug therapy; D68.59 Other primary thrombophilia; L03.116 Cellulitis of left lower limb

== ENCOUNTER 2021-01-08 11:24 | Inpatient (IN) ==
[2021-01-08 12:13] LABS: Basophils # (auto) 0.01 K/uL (0-0.2); Basophils % (auto) 0.3 %; Hematocrit (blood only) 37.2 % (37-47); Hemoglobin 12.3 g/dL (12.0-16.0); Immature Granulocytes # (auto) 0.01 K/uL (0.00-0.02); Immature Granulocytes % (auto) 0.3 %; Lymphocytes # (auto) 0.72 K/uL (1.2-3.4); Lymphocytes % (auto) 20.3 %; Mean Corpuscular Hemoglobin 26.2 pg (25-34); Mean Corpuscular Hgb Conc 33.1 g/dL (32-36); Mean Corpuscular Volume 79.1 fL (80-100); Mean Platelet Volume 9.3 fL (7.4-10.4); Monocytes # (auto) 0.22 K/uL (0.11-0.59); Monocytes % (auto) 6.2 %; Neutrophils # (auto) 2.59 K/uL (1.4-6.5); Neutrophils % (auto) 72.9 %; Platelet Count 236 K/uL (130-400); RDW Coefficient of Variation 15.3 % (11.5-14.5); RDW Standard Deviation 44.8 fL (36.4-46.3); White Blood Count 3.55 K/uL (4.8-10.8)
--- NOTE | 2021-01-08 12:23 | XRay Report ---
XR chest 1V portable CLINICAL HISTORY: Atypical chest pain COMPARISON STUDY: 07/22/2020 FINDINGS: The heart is enlarged. There are multifocal pulmonary airspace opacities.[The findings are suspicious for a multifocal pneumonia. Correlation with Covid 19 testing recommended. Pulmonary edema could appear similar but is statistically less likely. There are no large pleural effusions. IMPRESSION: 1. Multifocal pulmonary airspace opacities, suspicious for a multifocal pneumonia. Pulmonary edema co uld appear similar but is statistically less likely. ACT 112: Negative or not required by law. Electronically signed by: Tres Felix M.D. 01/08/2021 12:21 PM
[2021-01-08 12:37] LABS: Alanine Aminotransferase 27 U/L (12-78); Albumin Globulin Ratio 0.6 (0.9-2); Alkaline Phosphatase 55 U/L (45-117); BUN Creatinine Ratio 10.3 (10-20); Blood Urea Nitrogen 6 mg/dl (7-18); Calcium 8.4 mg/dl (8.5-10.1); Creatinine Clr Calc Pharmacy 189.6 ml/min; D Dimer 1450 ug/L FEU (0-500); Est GFR (African American) 137.6; Est GFR (Non-African American) 118.7; Globulin 4.7 gm/dl (2.5-4.0); Glucose 102 mg/dl (70-99); Total Protein 7.7 gm/dl (6.4-8.2); Troponin I < 0.015 ng/ml (0-0.045)
[2021-01-08 12:49] LABS: Carbon Dioxide 25 mmol/L (21-32); Chloride 106 mmol/L (98-107); Sodium 140 mmol/L (136-145)
[2021-01-08 12:57] LABS: Aspartate Aminotransferase 19 U/L (15-37); Bilirubin,Total 0.9 mg/dl (0.2-1)
--- NOTE | 2021-01-08 13:11 | Electrocardiogram Report ---
Test Reason : Blood Pressure : / mmHG Vent. Rate : 079 BPM Atrial Rate : 079 BPM P-R Int : 130 ms QRS Dur : 084 ms QT Int : 366 ms P-R-T Axes : 042 012 005 degrees QTc Int : 419 ms Normal sinus rhythm Incomplete right bundle branch block Abnormal ECG When compared with ECG of 22-JUL-2020 17:48, No significant change was found Confirmed by Leeroy Donnelly ([id number]) on 01/08/2021 1:10:44 PM Referred By: SELF Confirmed By:Javier Donnelly
[2021-01-08] MEDS ORDERED: OPTIRAY 350 500ml IV ONE (13:42)
--- NOTE | 2021-01-08 14:04 | CT Scan Report ---
CT ANGIOGRAM OF THE CHEST CLINICAL HISTORY: Atypical chest pain and shortness of breath. Abnormal chest x-ray. COMPARISON STUDY: Chest x-ray dated 01/08/2021 TECHNIQUE: Following the IV administration of 118 mL of Optiray-320, CT angiogram of the thorax was p erformed from the thoracic inlet to the lung bases utilizing the pulmonary embolus protocol. Images a re reviewed in the axial, sagittal, and coronal planes. IV contrast was administered without complica tion. MIP imaging was performed. A dose lowering technique was utilized adhering to the principles o f ALARA. CT DOSE: 832.31 mGy.cm FINDINGS: There is hepatic steatosis. There are mildly enlarged mediastinal and hilar lymph nodes, statistically reactive. There was no evidence of thoracic aortic dilatation. Pulmonary evaluation is slightly limited due to respiratory motion artifact. There are no pulmonary a rtery filling defects uterus suspicious for emboli. There are small bilateral pleural effusions There are multifocal pulmonary airspace opacities. Multifocal pneumonia favored over pulmonary edema. IMPRESSION: 1. No evidence of acute pulmonary embolism given the technical limitations of the study 2. Mediastinal and hilar lymphadenopathy, statistically reactive 3. Small bilateral pleural effusions 4. Multifocal pulmonary airspace opacities. Multifocal pneumonia favored over pulmonary edema. 5. Hepatic steatosis ACT 112: Negative or not required by law. Electronically signed by: Tres Felix M.D. 01/08/2021 2:03 PM
--- NOTE | 2021-01-08 14:25 | Emergency Department Note ---
History of Present Illness General Chief complaint: Shortness of Breath/Dyspnea Stated complaint: SOB, +COVID 01/02 Time Seen by Provider: 01/08/21 11:31 Source: patient Mode of arrival: ambulatory Limitations: no limitations History of Present Illness Provider complaint: Shortness of breath Maximum Pain Intensity: 5 The ED with a chief complaint of shortness of breath. The patient states that she had a positive Covid test on 01/02/2021. The patient reports that it is hard to breathe. She reports some associated nausea. She has had symptoms for about a week. She reports no appetite. Nothing makes it worse. Robitussin helps her cough. No additional complaints at this time. Home Medications Medication Instructions Recorded Confirmed Type famotidine 40 mg tablet 40 mg PO HS PRN #90 tab 10/08/19 01/08/21 Rx metformin 500 mg tablet 500 mg PO BID #60 tab 11/29/20 01/08/21 Rx ondansetron HCl 4 mg tablet 4 mg PO QID PRN #20 tab 01/06/21 01/08/21 Rx furosemide 20 mg PO QAM 01/08/21 01/08/21 History lisinopril 20 mg PO QAM 01/08/21 01/08/21 History omeprazole 20 mg PO DAILYBB 01/08/21 01/08/21 History sertraline 50 mg PO QAM 01/08/21 01/08/21 History Allergies Allergy/AdvReac Type Severity Reaction Status Date / Time latex Allergy Mild RASH ON Verified 01/08/21 12:21 ARMS FROM USING GLOVES Penicillins Allergy Mild RASH Verified 01/08/21 12:21 CHILD NICKELSULFATE Allergy Mild RASH AND Uncoded 01/08/21 12:21 IRRITATION WHEN WEARS JEWELERY OR BUCKLE WITH NICKE Past Med/Surg History Medical History Anxiety Elevated hemoglobin A1c Essential hypertension Factor V Leiden GERD without esophagitis Protein S deficiency Super obesity Surgical History History of dental surgery Family History Other No pertinent family history Denies family history of Ovarian cancer Prostate cancer Myocardial infarction Breast cancer Colorectal cancer Social History Smoking Status: Never smoker Second Hand Exposure: No; Hx Alcohol Use: No Hx Substance Use: No Preferred Language: Kyrgyz Communication Ability: Effective Food Service Driver Required: No Beliefs That Will Affect Care: None marital status: Current Living Situation: Spouse and Family current occupational status: employed Feels Safe at Home: Yes Dental Care, Regularly: Yes Seatbelt Use: always Assistive Devices: None Review of Systems A total of 10 systems reviewed and were otherwise negative Physical Exam Vital Signs Vital Signs - 24 hr 01/08/21 11:24 01/08/21 11:26 01/08/21 11:47 Temperature 36.3 C L Temperature Source Temporal Artery Scan Pulse Rate 92 H 83 Pulse Rate [Right] 82 Pulse Rate from SpO2 Sensor Pulse Rhythm Regular Pulse Rhythm [Right] Regular Pulse Strength [Right] Normal Respiratory Rate 21 20 22 Respiratory Effort / Characteristics Non-Labored Non-Labored Respiratory Depth Normal Normal Respiratory Pattern Regular Blood Pressure 139/73 Blood Pressure [Left Arm] 144/88 H Blood Pressure Mean 95 Blood Pressure Mean [Left Arm] 106 Pulse Oximetry 94 90 94 Oxygen Delivery Method Room Air Room Air Room Air Oxygen Flow Rate Sepsis Recent Fever Within 48 Hours No Sepsis New/Unexplained Change in Mental Status No Sepsis Action Taken by Nursing No Action Required 01/08/21 12:15 01/08/21 12:30 01/08/21 12:45 Temperature Temperature Source Pulse Rate 81 78 78 Pulse Rate [Right] Pulse Rate from SpO2 Sensor 80 83 78 Pulse Rhythm Pulse Rhythm [Right] Pulse Strength [Right] Respiratory Rate 21 24 26 H Respiratory Effort / Characteristics Respiratory Depth Respiratory Pattern Blood Pressure 143/89 H 153/91 H 137/85 Blood Pressure [Left Arm] Blood Pressure Mean 107 111 102 Blood Pressure Mean [Left Arm] Pulse Oximetry 92 91 91 Oxygen Delivery Method Oxygen Flow Rate Sepsis Recent Fever Within 48 Hours Sepsis New/Unexplained Change in Mental Status Sepsis Action Taken by Nursing 01/08/21 13:00 01/08/21 13:01 01/08/21 13:15 Temperature Temperature Source Pulse Rate 78 77 81 Pulse Rate [Right] Pulse Rate from SpO2 Sensor 78 77 81 Pulse Rhythm Pulse Rhythm [Right] Pulse Strength [Right] Respiratory Rate 24 23 23 Respiratory Effort / Characteristics Respiratory Depth Respiratory Pattern Blood Pressure 148/90 H Blood Pressure [Left Arm] Blood Pressure Mean 109 Blood Pressure Mean [Left Arm] Pulse Oximetry 90 90 Oxygen Delivery Method Oxygen Flow Rate Sepsis Recent Fever Within 48 Hours Sepsis New/Unexplained Change in Mental Status Sepsis Action Taken by Nursing 01/08/21 13:30 01/08/21 13:45 01/08/21 13:47 Temperature Temperature Source Pulse Rate 79 Pulse Rate [Right] Pulse Rate from SpO2 Sensor 84 77 Pulse Rhythm Pulse Rhythm [Right] Pulse Strength [Right] Respiratory Rate 16 24 Respiratory Effort / Characteristics Respiratory Depth Normal Respiratory Pattern Blood Pressure Blood Pressure [Left Arm] Blood Pressure Mean Blood Pressure Mean [Left Arm] Pulse Oximetry 100 84 L Oxygen Delivery Method Room Air Oxygen Flow Rate Sepsis Recent Fever Within 48 Hours Sepsis New/Unexplained Change in Mental Status Sepsis Action Taken by Nursing 01/08/21 13:50 01/08/21 13:52 01/08/21 13:53 Temperature Temperature Source Pulse Rate 79 76 76 Pulse Rate [Right] Pulse Rate from SpO2 Sensor 79 76 76 Pulse Rhythm Pulse Rhythm [Right] Pulse Strength [Right] Respiratory Rate 18 26 H 25 H Respiratory Effort / Characteristics Respiratory Depth Respiratory Pattern Blood Pressure 169/93 H Blood Pressure [Left Arm] Blood Pressure Mean 118 Blood Pressure Mean [Left Arm] Pulse Oximetry 99 100 100 Oxygen Delivery Method Nasal Cannula Oxygen Flow Rate 2 Sepsis Recent Fever Within 48 Hours Sepsis New/Unexplained Change in Mental Status Sepsis Action Taken by Nursing 01/08/21 14:00 01/08/21 14:01 01/08/21 14:10 Temperature Temperature Source Pulse Rate 72 71 68 Pulse Rate [Right] Pulse Rate from SpO2 Sensor 73 71 68 Pulse Rhythm Pulse Rhythm [Right] Pulse Strength [Right] Respiratory Rate 24 18 21 Respiratory Effort / Characteristics Respiratory Depth Respiratory Pattern Blood Pressure 163/89 H Blood Pressure [Left Arm] Blood Pressure Mean 113 Blood Pressure Mean [Left Arm] Pulse Oximetry 99 99 99 Oxygen Delivery Method Nasal Cannula Nasal Cannula Nasal Cannula Oxygen Flow Rate 2 2 2 Sepsis Recent Fever Within 48 Hours Sepsis New/Unexplained Change in Mental Status Sepsis Action Taken by Nursing 01/08/21 14:15 01/08/21 14:20 01/08/21 14:30 Temperature Temperature Source Pulse Rate 69 77 77 Pulse Rate [Right] Pulse Rate from SpO2 Sensor 70 76 75 Pulse Rhythm Pulse Rhythm [Right] Pulse Strength [Right] Respiratory Rate 22 18 19 Respiratory Effort / Characteristics Respiratory Depth Respiratory Pattern Blood Pressure 153/86 H 150/82 H Blood Pressure [Left Arm] Blood Pressure Mean 108 104 Blood Pressure Mean [Left Arm] Pulse Oximetry 99 98 98 Oxygen Delivery Method Nasal Cannula Nasal Cannula Nasal Cannula Oxygen Flow Rate 2 2 2 Sepsis Recent Fever Within 48 Hours Sepsis New/Unexplained Change in Mental Status Sepsis Action Taken by Nursing 01/08/21 14:40 01/08/21 14:46 Temperature Temperature Source Pulse Rate 78 76 Pulse Rate [Right] Pulse Rate from SpO2 Sensor 77 75 Pulse Rhythm Pulse Rhythm [Right] Pulse Strength [Right] Respiratory Rate 22 24 Respiratory Effort / Characteristics Respiratory Depth Respiratory Pattern Blood Pressure 140/82 Blood Pressure [Left Arm] Blood Pressure Mean 101 Blood Pressure Mean [Left Arm] Pulse Oximetry 98 97 Oxygen Delivery Method Nasal Cannula Nasal Cannula Oxygen Flow Rate 2 2 Sepsis Recent Fever Within 48 Hours Sepsis New/Unexplained Change in Mental Status Sepsis Action Taken by Nursing CONSTITUTIONAL/VITAL SIGNS: Reviewed / noted above. GENERAL: Non-toxic in appearance. Obese INTEGUMENTARY: Warm, dry, and [place]. HEAD: Normocephalic. EYES: without scleral icterus or trauma. ENT/OROPHARYNX: clear and moist. LYMPHADENOPATHY/NECK: Is supple without lymphadenopathy or meningismus. RESPIRATORY: Lungs clear and equal. CARDIOVASCULAR: Regular rate and rhythm. GI/ABDOMEN: Soft and nontender. No organomegaly or pulsatile mass. No rebound or guarding. Normal bowel sounds. EXTREMITIES: Warm and well perfused. BACK: No CVA tenderness. NEUROLOGICAL: Intact without focal deficits. PSYCHIATRIC: normal affect. MUSCULOSKELETAL: Normally developed with good muscle tone. TRIAGE NURSING DOCUMENTATION REVIEWED. Course Administered Medications Discontinued Medications Ioversol (Optiray 350 500ml) 118 ml IV ONCE ONE Stop: 01/08/21 13:43 Last Admin: 01/08/21 13:42 Dose: 118 ml Documented by: [id number] Medical Decision Making Differential Diagnosis The differential was considered includes acute myocardial infarction, acute coronary syndrome, myocarditis, pericarditis, pericardial effusions /tamponad, esophageal perforation, pulmonary embolism, pneumonia, pneumothorax, cardiomyopathy, congestive heart, anemia , COPD/asthma exacerbation. Medical Records Attestation: I reviewed the patient's medical records. Home Medications Current Medication List: was personally reviewed by me Laboratory Data Attestation: I reviewed the patient's lab results. Result diagrams: 01/08/21 12:00 01/08/21 12:00 Lab Results 01/08/21 01/08/21 01/08/21 Range/Units 12:00 12:00 12:00 WBC 3.55 L (4.8-10.8) K/uL RBC 4.70 (4.2-5.4) M/uL Hgb 12.3 (12.0-16.0) g/dL Hct 37.2 (37-47) % MCV 79.1 L (80-100) fL MCH 26.2 (25-34) pg MCHC 33.1 (32-36) g/dL RDW Std Deviation 44.8 (36.4-46.3) fL RDW Coeff of [place] 15.3 H (11.5-14.5) % Plt Count 236 (130-400) K/uL MPV 9.3 (7.4-10.4) fL Immature Gran % (Auto) 0.3 % Neut % (Auto) 72.9 % Lymph % (Auto) 20.3 % [place] % (Auto) 6.2 % Eos % (Auto) 0.0 % Baso % (Auto) 0.3 % Neut # (Auto) 2.59 (1.4-6.5) K/uL Lymph # (Auto) 0.72 L (1.2-3.4) K/uL [place] # (Auto) 0.22 (0.11-0.59) K/uL Eos # (Auto) 0.00 (0-0.5) K/uL Baso # (Auto) 0.01 (0-0.2) K/uL Immature Gran # (Auto) 0.01 (0.00-0.02) K/uL D-Dimer 1450 H* (0-500) ug/L FEU Sodium 140 (136-145) mmol/L Potassium 4.0 (3.5-5.1) mmol/L Chloride 106 (98-107) mmol/L Carbon Dioxide 25 (21-32) mmol/L Anion Gap 9.0 (3-11) BUN 6 L (7-18) mg/dl Creatinine 0.59 L (0.6-1.2) mg/dl Est Cr Clr Drug Dosing 189.6 ml/min Est GFR ( Amer) 137.6 Est GFR (Non-Af Amer) 118.7 BUN/Creatinine Ratio 10.3 (10-20) Glucose 102 H (70-99) mg/dl Calcium 8.4 L (8.5-10.1) mg/dl Total Bilirubin 0.9 (0.2-1) mg/dl AST 19 (15-37) U/L ALT 27 (12-78) U/L Alkaline Phosphatase 55 (45-117) U/L Troponin I < 0.015 (0-0.045) ng/ml Total Protein 7.7 (6.4-8.2) gm/dl Albumin 3.0 L (3.4-5.0) gm/dl Globulin 4.7 H (2.5-4.0) gm/dl Albumin/Globulin Ratio 0.6 L (0.9-2) Imaging Data Radiologist's Impression: Chest X-Ray 01/08/21 11:47 XR chest 1V portable CLINICAL HISTORY: Atypical chest pain COMPARISON STUDY: 07/22/2020 FINDINGS: The heart is enlarged. There are multifocal pulmonary airspace opacit ies.[The findings are suspicious for a multifocal pneumonia. Correlation with Covid 19 testing recommended. Pulmonary edema could appear similar but is statistically less likely. There are no large pleural effusions. IMPRESSION: 1. Multifocal pulmonary airspace opacities, suspicious for a multifocal pneumonia. Pulmonary edema could appear similar but is statistically less likely. ACT 112: Negative or not required by law. Electronically signed by: Tres Felix M.D. 01/08/2021 12:21 PM Chest CTA 01/08/21 11:48 CT ANGIOGRAM OF THE CHEST CLINICAL HISTORY: Atypical chest pain and shortness of breath. Abnormal chest x- ray. COMPARISON STUDY: Chest x-ray dated 01/08/2021 TECHNIQUE: Following the IV administration of 118 mL of Optiray-320, CT angiogram of the thorax was performed from the thoracic inlet to the lung bases utilizing the pulmonary embolus protocol. Images are reviewed in the axial, sagittal, and coronal planes. IV contrast was administered without complication. MIP imaging was performed. A dose lowering technique was utilized adhering to the principles of ALARA. CT DOSE: 832.31 mGy.cm FINDINGS: There is hepatic steatosis. There are mildly enlarged mediastinal and hilar lymph nodes, statistically reactive. There was no evidence of thoracic aortic dilatation. Pulmonary evaluation is slightly limited due to respiratory motion artifact. There are no pulmonary artery filling defects uterus suspicious for emboli. There are small bilateral pleural effusions There are multifocal pulmonary airspace opacities. Multifocal pneumonia favored over pulmonary edema. IMPRESSION: 1. No evidence of acute pulmonary embolism given the technical limitations of the study 2. Mediastinal and hilar lymphadenopathy, statistically reactive 3. Small bilateral pleural effusions 4. Multifocal pulmonary airspace opacities. Multifocal pneumonia favored over pulmonary edema. 5. Hepatic steatosis ACT 112: Negative or not required by law. Electronically signed by: Tres Felix M.D. 01/08/2021 2:03 PM ECG Data Attestation: I personally reviewed and interpreted this ECG as follows: Indication: + SOB/dyspnea Rate (beats per minute): 78 Rhythm: + normal sinus ECG ST segments: no ST elevation ECG Findings: no PVCs MDM Narrative Patient presents with shortness of breath in the setting of a recent Covid diagnosis. Her chest x-ray as well as CT scan of the chest reveals bilateral pulmonary airspace opacities a multifocal pneumonia is favored over pulmonary edema. There was no PE. EKG showed a sinus rhythm. CBC shows a mild leukopeni a chemistry panel was unremarkable, troponin is negative. Patient was told the results of the test. The patient does not feel comfortable going home. She was hypoxic with oxygen saturations of 84% with movement from 1 bed to another. Patient was given IV Zithromax. She will be seen by the hospitalist for further evaluation and care. Impression & Plan Bilateral interstitial pneumonia, COVID-19 Discharge Plan Visit Data Chief Complaint: Shortness of Breath/Dyspnea Stated Complaint: SOB, +COVID 01/02 ED Provider: Brett Saenz Discharge Problem: Bilateral interstitial pneumonia, COVID-19 Patient Disposition: Being Evaluated by Hospitalist Forms Stand Alone Forms: [facility]dit Prescriptions Prescriptions: No Action ondansetron HCl [Zofran] 4 mg tablet 4 mg PO QID PRN (Reason: nausea and vomiting) Qty: 20 RF: 0 famotidine 40 mg tablet 40 mg PO HS PRN (Reason: GERD) Qty: 90 RF: 1 metformin 500 mg tablet 500 mg PO BID Qty: 60 RF: 3 lisinopril 20 mg tablet 20 mg PO QAM RF: 0 omeprazole 20 mg capsule,delayed release(DR/EC) 20 mg PO DAILYBB RF: 0 furosemide 20 mg tablet 20 mg PO QAM RF: 0 sertraline 50 mg tablet 50 mg PO QAM RF: 0 Referrals Referrals: Anny Ryder MD [Primary Care Provider] -
--- NOTE | 2021-01-08 14:46 | History & Physical Report ---
Date of Service January 08, 2021 Assessment & Plan (1) COVID-19: Covid pneumonia Ct chest 01/08/21 IMPRESSION: 1. No evidence of acute pulmonary embolism given the technical limitations of the study 2. Mediastinal and hilar lymphadenopathy, statistically reactive 3. Small bilateral pleural effusions 4. Multifocal pulmonary airspace opacities. Multifocal pneumonia favored over pulmonary edema. 5. Hepatic steatosis Pt will be placed on Dexamethasone 6 mg, remdesivir and zinc , will be on humidified oxygen. Patient is near day 10. We will check a CRP in the morning and a procalcitonin. Patient was given 1 dose of azithromycin in the ER additional antibiotics are not continued (2) Essential hypertension: will be continued on lisinopril and lasix (3) Elevated hemoglobin A1c: slightly elevated in 08/12 at 6.1, patient was started on Metformin as part of a weight loss strategy for metabolic syndrome she is not typically check her blood sugars at home recheck in am (4) Anxiety with depression: zoloft will continue (5) DVT prophylaxis: Patient is a history of factor V Leiden deficiency and previous history of protein S deficiency. She will be on Covid twice daily dosing of 0.5 mg/kg Lovenox History of Present Illness Primary Care Provider: Anny Ryder MD The ED with a chief complaint of shortness of breath. The patient states that she first developed the upper respiratory symptoms around 12/30/2020 then had a positive Covid test on 01/02/2021. The patient reports that she continues to have significant dyspnea. She is not lost her taste or smell she has had some diarrhea and she reports some associated nausea. She reports no appetite. 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 She is seeing a weight loss physician was placed on Metformin. She typically is not check her glucoses at home Allergies Allergy/AdvReac Type Severity Reaction Status Date / Time latex Allergy Mild RASH ON Verified 01/08/21 12:21 ARMS FROM USING GLOVES Penicillins Allergy Mild RASH Verified 01/08/21 12:21 CHILD NICKELSULFATE Allergy Mild RASH AND Uncoded 01/08/21 12:21 IRRITATION WHEN WEARS JEWELERY OR BUCKLE WITH NICKE Home Medications Medication Instructions Recorded Confirmed Type famotidine 40 mg tablet 40 mg PO HS PRN #90 tab 10/08/19 01/08/21 Rx metformin 500 mg tablet 500 mg PO BID #60 tab 11/29/20 01/08/21 Rx ondansetron HCl 4 mg tablet 4 mg PO QID PRN #20 tab 01/06/21 01/08/21 Rx furosemide 20 mg PO QAM 01/08/21 01/08/21 History lisinopril 20 mg PO QAM 01/08/21 01/08/21 History omeprazole 20 mg PO DAILYBB 01/08/21 01/08/21 History sertraline 50 mg PO QAM 01/08/21 01/08/21 History Past Med/Surg History Medical History Anxiety Elevated hemoglobin A1c Essential hypertension Factor V Leiden GERD without esophagitis Protein S deficiency Super obesity Surgical History History of dental surgery Family History Other No pertinent family history Denies family history of Ovarian cancer Prostate cancer Myocardial infarction Breast cancer Colorectal cancer Social History Smoking Status: Never smoker Second Hand Exposure: No; Hx Alcohol Use: No Hx Substance Use: No Preferred Language: Filipino Communication Ability: Effective Hand Box Folder Required: No Beliefs That Will Affect Care: None marital status: Current Living Situation: Spouse and Family current occupational status: employed Other Information That Helps Us Care for You: No Feels Safe at Home: Yes Safety Concerns: Feels Safe At This Time Dental Care, Regularly: Yes Seatbelt Use: always Assistive Devices: None Review of Systems Review of Systems: Moderate respiratory distress and fatigue no headache, blurry or double vision no speech or swallowing issues no chest pain, pressure or palpitations Shortness of breath with speaking and with exertion. Nonproductive cough no abdominal pain, nausea or vomiting, complains of having diarrhea for about a week no dysuria, hematuria or frequency no focal joint pain or swelling no back pain, CVA tenderness or radicular pain no bruising, bleeding or rashes no focal signs of weakness or numbness or altered sensation no complaints of anxiety or depression.. Physical Exam Physical Exam: The patient appeared well nourished and normally developed. She is morbidly obese with a BMI of 54 Vital signs as documented. Head exam is normocephalic atraumatic no scleral icterus Neck is without JVD, thyromegaly, or carotid bruits. Lungs are typical bibasilar and midlung coarse rales no wheezes good air movement Cardiac exam, Rhythm is regular.. No murmurs, rubs or gallops. Abdominal exam reveals normal bowel sounds, soft non tender, no masses Extremities are nonedematous and both pedal pulses are present Neurologic exam is alert and oriented, no focal loss of strength or sensation Skin is without bruises or rashes Psychologically is without concerns for anxiety or depression Results & Data Results & Data ([facility]) Vital Signs (Past 12 Hours) Vital Signs Temp Pulse Pulse Resp BP BP Pulse Ox 01/08/21 13:52 76 26 H 169/93 H 100 01/08/21 13:50 79 18 99 01/08/21 13:47 24 84 L 01/08/21 13:45 79 16 100 01/08/21 13:15 81 23 01/08/21 13:01 77 23 90 01/08/21 13:00 78 24 148/90 H 90 01/08/21 12:45 78 26 H 137/85 91 01/08/21 12:30 78 24 153/91 H 91 01/08/21 12:15 81 21 143/89 H 92 01/08/21 11:47 83 22 94 01/08/21 11:26 97.3 F L 92 H 20 139/73 90 01/08/21 11:24 82 21 144/88 H 94 chest x-ray shows bibasilar groundglass infiltrates consistent with Covid pneumonia EKG shows sinus rhythm with incomplete right bundle branch block PG Care Time/CCT Total # of Minutes Spent Total Time Spent with Patient: Total time spent is greater than 50% in coordination of care (as documented) at patient's floor/unit and/or counseling patient: Coding Level of Care Code 39222 Initial Inpt Care Lvl 3 Diagnoses COVID-19 U07.1 Essential hypertension I10 Elevated hemoglobin A1c R73.09 Anxiety with depression F41.8 DVT prophylaxis Z29.9
[2021-01-08] MEDS ORDERED: AZITHROMYCIN 500 MG in DEXTROSE 5% 250 ML IV STA (14:51)
[2021-01-08] MEDS ORDERED: ONDANSETRON INJ 2 MG/ML 2 ML VIAL ONE (15:09)
[2021-01-08] MEDS ORDERED: ACETAMINOPHEN 325 MG TAB PO PRN (16:38)
[2021-01-08] MEDS ORDERED: GLUCOSE 40% GEL 15 GM TUBE PO PRN (16:38)
[2021-01-08] MEDS ORDERED: GLUCOSE 10 TABS/TUBE PO PRN (16:38)
[2021-01-08] MEDS ORDERED: ONDANSETRON INJ 2 MG/ML 2 ML VIAL IV PRN (16:38)
[2021-01-08] MEDS ORDERED: DEXTROSE 50% 50 ML SYRINGE IV PRN (16:38)
[2021-01-08] MEDS ORDERED: ALUMINUM/MAGNESIUM SUSP 30 ML UDC PO PRN (16:38)
[2021-01-08] MEDS ORDERED: CARBOHYDRATES FOR HYPOGLYCEMIA PO PRN (16:38)
[2021-01-08] MEDS ORDERED: ENOXAPARIN 0.5 MG/KG SQ SCH (16:38)
[2021-01-08] MEDS ORDERED: POLYETHYLENE (MIRALAX) 17 GM PACK PO PRN (16:38)
[2021-01-08] MEDS ORDERED: GLUCAGON FOR INJ 1 MG VIAL SQ PRN (16:38)
[2021-01-08] MEDS ORDERED: ONDANSETRON 4 MG OD TAB PO PRN (16:40)
[2021-01-08] MEDS ORDERED: PHARMACY GLYCEMIC MGMT CONSULT PRN (16:42)
[2021-01-08 16:56] LABS: Influenza A virus by PCR Negative (Neg); Influenza B virus by PCR Negative (Neg); RSV by PCR Negative (Neg)
[2021-01-08 16:59] LABS: SARS CoV2 RNA(COVID-19) InHosp POSITIVE (Negative)
[2021-01-08] MEDS ORDERED: REMDESIVIR 200 MG in SODIUM CHLORIDE 0.9% 210 ML IV ONE (17:00)
[2021-01-08] MEDS ORDERED: dexAMETHasone 6 MG in SYRINGE 0 ML IV ONE (17:00)
[2021-01-08] MEDS: INSULIN HUMAN NPH SC SCH (17:35)
[2021-01-08] MEDS: INSULIN ASPART 100 UNITS/ML 3 ML PEN SC SCH ×2 (17:49→22:23)
[2021-01-08] MEDS: ENOXAPARIN 80 MG/0.8 ML SYR SQ SCH (18:30)
[2021-01-08] MEDS: SODIUM CHLORIDE 0.9% 10ML FLUSH IV SCH (19:53)
[2021-01-09] MEDS: ENOXAPARIN 80 MG/0.8 ML SYR SQ SCH ×2 (06:07→17:59)
[2021-01-09] MEDS: PANTOprazole 40 MG TAB PO SCH (06:07)
--- NOTE | 2021-01-09 06:59 | Hospitalist Progress Note ---
Date of Service January 09, 2021 Assessment & Plan (1) COVID-19: Covid pneumonia Ct chest 01/08/21 IMPRESSION: 1. No evidence of acute pulmonary embolism given the technical limitations of the study 2. Mediastinal and hilar lymphadenopathy, statistically reactive 3. Small bilateral pleural effusions 4. Multifocal pulmonary airspace opacities. Multifocal pneumonia favored over pulmonary edema. 5. Hepatic steatosis Pt remains on Dexamethasone 6 mg, remdesivir and zinc , plus humidified oxygen. Patient is near day 10. elevatred CRP, procalcitonin as expected . Patient was given 1 dose of azithromycin in the ER additional antibiotics are not continued (2) Essential hypertension: will be continued on lisinopril and lasix (3) Elevated hemoglobin A1c: slightly elevated in 08/12 at 6.1, patient was started on Metformin as an out pt as part of a weight loss strategy for metabolic syndrome she is not typically check her blood sugars at home pt will only be on ssi when her glucoses are very high (4) Anxiety with depression: zoloft will continue (5) DVT prophylaxis: Patient is a history of factor V Leiden deficiency and previous history of protein S deficiency. She will be on Covid twice daily dosing of 0.5 mg/kg Lovenox Admission and Anticipated Discharge Date Admission Date: January 08, 2021 Subjective pt feels fairly breathless with exertion, she remains very afraid of Covid in general. non productive cough Review of Systems Review of Systems: Moderate respiratory distress and fatigue no headache, blurry or double vision no speech or swallowing issues no chest pain, pressure or palpitations Shortness of breath with speaking and with exertion. Nonproductive cough no abdominal pain, nausea or vomiting, complains of having diarrhea for about a week no dysuria, hematuria or frequency no focal joint pain or swelling no back pain, CVA tenderness or radicular pain no bruising, bleeding or rashes no focal signs of weakness or numbness or altered sensation no complaints of anxiety or depression.. Physical Exam Physical Exam: The patient appeared well nourished and normally developed. She is morbidly obese with a BMI of 54 Vital signs as documented. Head exam is normocephalic atraumatic no scleral icterus Neck is without JVD, thyromegaly, or carotid bruits. Lungs are typical bibasilar and midlung coarse rales no wheezes good air movement Cardiac exam, Rhythm is regular.. No murmurs, rubs or gallops. Abdominal exam reveals normal bowel sounds, soft non tender, no masses Extremities are nonedematous and both pedal pulses are present Neurologic exam is alert and oriented, no focal loss of strength or sensation Skin is without bruises or rashes Psychologically is without concerns for anxiety or depression Results & Data Results & Data ([facility]) Vital Signs (Past 12 Hours) Vital Signs Temp Pulse Pulse Resp BP Pulse Ox 01/09/21 03:20 97.7 F 56 L 17 146/75 H 92 01/09/21 03:04 76 01/08/21 23:01 98.1 F 60 19 128/78 94 01/08/21 19:14 101.5 F H 95 H 21 124/66 95 PG Care Time/CCT Total # of Minutes Spent Total Time Spent with Patient: Total time spent is greater than 50% in coordination of care (as documented) at patient's floor/unit and/or counseling patient: Coding Level of Care Code 42522 Subseq Hosp Care Lvl 3 Diagnoses COVID-19 U07.1 Essential hypertension I10 Elevated hemoglobin A1c R73.09 Anxiety with depression F41.8 DVT prophylaxis Z29.9
[2021-01-09 07:46] LABS: C Reactive Protein 11.6 mg/dl (0-0.29); Magnesium 2.4 mg/dl (1.8-2.4)
[2021-01-09] MEDS: INSULIN ASPART 100 UNITS/ML 3 ML PEN SC SCH ×4 (08:10→21:33)
[2021-01-09 08:24] LABS: Estimated Average Glucose 143 mg/dl; Hemoglobin A1C 6.6 % (4.5-5.6)
[2021-01-09] MEDS: lisinopril 20 MG TAB PO SCH (09:12)
[2021-01-09] MEDS: SERTRALINE HCL 50 MG TABLET PO SCH (09:12)
[2021-01-09] MEDS: dexAMETHasone 6 MG in SYRINGE 0 ML IV SCH (09:12)
[2021-01-09] MEDS: FUROSEMIDE 20 MG TAB PO SCH (09:12)
[2021-01-09] MEDS ORDERED: LEVALBUTEROL HCL 1.25 MG/3 ML NEB ONE (10:08)
[2021-01-09] MEDS ORDERED: LEVALBUTEROL HCL 1.25 MG/3 ML NEB INH PRN (10:09)
[2021-01-09] MEDS: REMDESIVIR 100 MG in SODIUM CHLORIDE 0.9% 230 ML IV SCH (11:38)
--- NOTE | 2021-01-09 12:59 | Pharmacy Report ---
Pharmacy Glycemic Short Note 2 - Date of Service January 09, 2021 - Glycemic Short BSG Results (Last 24 hours): 01/08/21 01/08/21 01/09/21 17:30 21:32 07:51 POC Glucose 109 H 153 H 121 H 01/09/21 11:21 POC Glucose 120 H OUTPATIENT ANTIDIABETIC REGIMEN: * Metformin 500mg PO BID * A1c = 6.6% 01/09/21 ASSESSMENT: * Patient admitted for COVID19 viral pneumonia * She states she does not have a h/o DM, however latest A1c is > 6.5, making the dx more likely. She appears to have some degree of underlying insulin resistance * Despite receiving IV dexamethasone her BSGs have been well controlled with no insulin administration. * Will d/c the NPH at this time and utilize only "moderate" stress Novolog doses. * Should she become hyperglycemic with repeat IV dexamethasone administration, will restart the NPH and adjust Novolog accordingly PLAN FOR INPATIENT GLYCEMIC CONTROL: * Hold outpatient oral diabetes medications (metformin) * Basal insulin * DC NPH * Bolus insulin * NovoLog per scale ACHS or Q6hrs while NPO * Goal Range: Low 110 mg/dL - High 140 mg/dL * Correction Factor: 25 mg/dL/unit * Nutritional / Prandial insulin per carb ratio of 1 unit per 9 grams CHO consumed PLAN FOR DISCHARGE: * may resume metformin on discharge if no contraindications present. A1c 6.6%
[2021-01-09] MEDS: INSULIN HUMAN NPH SC SCH (13:01)
[2021-01-09] MEDS: SODIUM CHLORIDE 0.9% 10ML FLUSH IV SCH (13:04)
[2021-01-10] MEDS: PANTOprazole 40 MG TAB PO SCH (06:03)
[2021-01-10] MEDS: ENOXAPARIN 80 MG/0.8 ML SYR SQ SCH ×2 (06:04→21:11)
[2021-01-10 06:23] LABS: Hematocrit (blood only) 37.2 % (37-47); Hemoglobin 12.1 g/dL (12.0-16.0); Mean Corpuscular Hemoglobin 25.8 pg (25-34); Mean Corpuscular Hgb Conc 32.5 g/dL (32-36); Mean Corpuscular Volume 79.3 fL (80-100); Mean Platelet Volume 9.5 fL (7.4-10.4); Platelet Count 307 K/uL (130-400); RDW Coefficient of Variation 15.5 % (11.5-14.5); RDW Standard Deviation 45.4 fL (36.4-46.3); Red Blood Count 4.69 M/uL (4.2-5.4); White Blood Count 4.97 K/uL (4.8-10.8)
[2021-01-10 06:50] LABS: BUN Creatinine Ratio 26.8 (10-20); Calcium 9.4 mg/dl (8.5-10.1); Creatinine Clr Calc Pharmacy 234.1 ml/min; Est GFR (African American) 146.3; Est GFR (Non-African American) 126.2; Potassium 4.6 mmol/L (3.5-5.1)
[2021-01-10] MEDS: INSULIN ASPART 100 UNITS/ML 3 ML PEN SC SCH ×4 (08:00→21:08)
[2021-01-10] MEDS: lisinopril 20 MG TAB PO SCH (08:05)
[2021-01-10] MEDS: SERTRALINE HCL 50 MG TABLET PO SCH (08:05)
[2021-01-10] MEDS: FUROSEMIDE 20 MG TAB PO SCH (08:06)
[2021-01-10] MEDS: dexAMETHasone 6 MG in SYRINGE 0 ML IV SCH (09:06)
[2021-01-10] MEDS: REMDESIVIR 100 MG in SODIUM CHLORIDE 0.9% 230 ML IV SCH (12:38)
[2021-01-10] MEDS: SODIUM CHLORIDE 0.9% 10ML FLUSH IV SCH (14:05)
--- NOTE | 2021-01-10 18:15 | Hospitalist Progress Note ---
Date of Service January 10, 2021 Assessment & Plan (1) COVID-19: Covid pneumonia still remains hypoxic on exertion <90% Ct chest 01/08/21 IMPRESSION: 1. No evidence of acute pulmonary embolism given the technical limitations of the study 2. Mediastinal and hilar lymphadenopathy, statistically reactive 3. Small bilateral pleural effusions 4. Multifocal pulmonary airspace opacities. Multifocal pneumonia favored over pulmonary edema. 5. Hepatic steatosis Pt remains on Dexamethasone 6 mg, remdesivir and zinc , plus humidified oxygen. initial diagnosis 01/02, some minor symptoms prior to day of testing elevatred CRP, procalcitonin as expected . Patient was given 1 dose of azithromycin in the ER additional antibiotics are not continued (2) Essential hypertension: will be continued on lisinopril and lasix (3) Elevated hemoglobin A1c: slightly elevated in 08/12 at 6.1, patient was started on Metformin as an out pt as part of a weight loss strategy for metabolic syndrome she is not typically check her blood sugars at home pt will only be on ssi when her glucoses are very high (4) Anxiety with depression: zoloft will continue (5) DVT prophylaxis: Patient is a history of factor V Leiden deficiency and previous history of protein S deficiency. She will be on Covid twice daily dosing of 0.5 mg/kg Lovenox Admission and Anticipated Discharge Date Admission Date: January 08, 2021 Subjective pts breathless ness has improved remains hypoxic on exertion , still with non productive cough Review of Systems Review of Systems: Moderate respiratory distress and fatigue no headache, blurry or double vision no speech or swallowing issues no chest pain, pressure or palpitations Shortness of breath with speaking and with exertion. Nonproductive cough no abdominal pain, nausea or vomiting, complains of having diarrhea for about a week no dysuria, hematuria or frequency no focal joint pain or swelling no back pain, CVA tenderness or radicular pain no bruising, bleeding or rashes no focal signs of weakness or numbness or altered sensation no complaints of anxiety or depression.. Physical Exam Physical Exam: The patient appeared well nourished and normally developed. She is morbidly obese with a BMI of 54 Vital signs as documented. Head exam is normocephalic atraumatic no scleral icterus Neck is without JVD, thyromegaly, or carotid bruits. Lungs are typical bibasilar and midlung coarse rales no wheezes good air movement Cardiac exam, Rhythm is regular.. No murmurs, rubs or gallops. Abdominal exam reveals normal bowel sounds, soft non tender, no masses Extremities are nonedematous and both pedal pulses are present Neurologic exam is alert and oriented, no focal loss of strength or sensation Skin is without bruises or rashes Psychologically is without concerns for anxiety or depression Results & Data Results & Data ([facility]) Vital Signs (Past 12 Hours) Vital Signs Temp Pulse Pulse Resp BP Pulse Ox 01/10/21 16:19 98.2 F 57 L 18 129/72 94 01/10/21 15:54 76 01/10/21 13:26 93 01/10/21 11:30 97.7 F 56 L 20 110/68 95 01/10/21 08:03 97.5 F L 01/10/21 08:00 43 L 01/10/21 07:53 51 L 20 146/79 H 94 PG Care Time/CCT Total # of Minutes Spent Total Time Spent with Patient: Total time spent is greater than 50% in coordination of care (as documented) at patient's floor/unit and/or counseling patient: Coding Level of Care Code 70403 Subseq Hosp Care Lvl 3 Diagnoses COVID-19 U07.1 Essential hypertension I10 Elevated hemoglobin A1c R73.09 Anxiety with depression F41.8 DVT prophylaxis Z29.9
[2021-01-11] MEDS: PANTOprazole 40 MG TAB PO SCH (06:30)
[2021-01-11] MEDS: ENOXAPARIN 80 MG/0.8 ML SYR SQ SCH ×2 (06:30→19:48)
[2021-01-11] MEDS: dexAMETHasone 6 MG in SYRINGE 0 ML IV SCH (08:36)
[2021-01-11] MEDS: SERTRALINE HCL 50 MG TABLET PO SCH (08:37)
[2021-01-11] MEDS: FUROSEMIDE 20 MG TAB PO SCH (08:37)
[2021-01-11] MEDS: lisinopril 20 MG TAB PO SCH (08:37)
[2021-01-11] MEDS: INSULIN ASPART 100 UNITS/ML 3 ML PEN SC SCH ×4 (09:12→21:22)
[2021-01-11] MEDS: guaiFENesin 600 MG TABCR PO SCH ×2 (09:59→19:48)
[2021-01-11] MEDS: REMDESIVIR 100 MG in SODIUM CHLORIDE 0.9% 230 ML IV SCH (11:33)
[2021-01-11] MEDS: SODIUM CHLORIDE 0.9% 10ML FLUSH IV SCH (11:34)
--- NOTE | 2021-01-11 13:39 | Pharmacy Report ---
Pharmacy Glycemic Short Note 2 - Date of Service January 11, 2021 - Glycemic Short BSG Results (Last 24 hours): 01/10/21 01/10/21 01/11/21 16:51 19:59 07:44 POC Glucose 125 H 141 H 112 H 01/11/21 11:55 POC Glucose 159 H OUTPATIENT ANTIDIABETIC REGIMEN: * Metformin 500mg PO BID * A1c = 6.6% 01/09/21 ASSESSMENT: 01/10: * Pt received total 21 units of insulin yesterday all of which was bolus. * Fasting BSG was 112 mg/dl today. She has not been requiring any basal insulin in spite of being on IV Dexamethasone. * Continue current Novolog parameters. 01/09: * Patient admitted for COVID19 viral pneumonia * She states she does not have a h/o DM, however latest A1c is > 6.5, making the dx more likely. She appears to have some degree of underlying insulin resistance * Despite receiving IV dexamethasone her BSGs have been well controlled with no insulin administration. * Will d/c the NPH at this time and utilize only "moderate" stress Novolog doses. * Should she become hyperglycemic with repeat IV dexamethasone administration, will restart the NPH and adjust Novolog accordingly PLAN FOR INPATIENT GLYCEMIC CONTROL: * Hold outpatient oral diabetes medications (metformin) * Basal insulin * none * Bolus insulin: continue * NovoLog per scale ACHS or Q6hrs while NPO * Goal Range: Low 110 mg/dL - High 140 mg/dL * Correction Factor: 25 mg/dL/unit * Nutritional / Prandial insulin per carb ratio of 1 unit per 9 grams CHO consumed PLAN FOR DISCHARGE: * may resume metformin on discharge if no contraindications present. A1c 6.6%
--- NOTE | 2021-01-11 17:46 | Hospitalist Progress Note ---
Date of Service January 11, 2021 Assessment & Plan (1) COVID-19: Covid pneumonia still remains hypoxic on exertion <90% Ct chest 01/08/21 IMPRESSION: 1. No evidence of acute pulmonary embolism given the technical limitations of the study 2. Mediastinal and hilar lymphadenopathy, statistically reactive 3. Small bilateral pleural effusions 4. Multifocal pulmonary airspace opacities. Multifocal pneumonia favored over pulmonary edema. 5. Hepatic steatosis Pt remains on Dexamethasone 6 mg, remdesivir will complete last dose 01/12 and zinc , plus humidified oxygen. initial diagnosis 01/02, some minor symptoms prior to day of testing elevated CRP, procalcitonin as expected . Patient was given 1 dose of azithromycin in the ER additional antibiotics are not continued (2) Essential hypertension: will be continued on lisinopril and lasix (3) Elevated hemoglobin A1c: slightly elevated in 08/12 at 6.1, patient was started on Metformin as an out pt as part of a weight loss strategy for metabolic syndrome she is not typically check her blood sugars at home pt will only be on ssi when her glucoses are very high (4) Anxiety with depression: zoloft will continue (5) DVT prophylaxis: Patient is a history of factor V Leiden deficiency and previous history of protein S deficiency. She will be on Covid twice daily dosing of 0.5 mg/kg Lovenox Admission and Anticipated Discharge Date Admission Date: January 08, 2021 Subjective pts breathless ness continues to improve remains minorly hypoxic on exertion , still with non productive cough but lessening Review of Systems Review of Systems: Moderate respiratory distress and fatigue no headache, blurry or double vision no speech or swallowing issues no chest pain, pressure or palpitations Shortness of breath with speaking and with exertion. Nonproductive cough no abdominal pain, nausea or vomiting, complains of having diarrhea for about a week no dysuria, hematuria or frequency no focal joint pain or swelling no back pain, CVA tenderness or radicular pain no bruising, bleeding or rashes no focal signs of weakness or numbness or altered sensation no complaints of anxiety or depression.. Physical Exam Physical Exam: The patient appeared well nourished and normally developed. She is morbidly obese with a BMI of 54 Vital signs as documented. Head exam is normocephalic atraumatic no scleral icterus Neck is without JVD, thyromegaly, or carotid bruits. Lungs are typical bibasilar and midlung coarse rales no wheezes good air movement Cardiac exam, Rhythm is regular.. No murmurs, rubs or gallops. Abdominal exam reveals normal bowel sounds, soft non tender, no masses Extremities are nonedematous and both pedal pulses are present Neurologic exam is alert and oriented, no focal loss of strength or sensation Skin is without bruises or rashes Psychologically is without concerns for anxiety or depression Results & Data Results & Data ([facility]) Vital Signs (Past 12 Hours) Vital Signs Temp Pulse Pulse Resp BP Pulse Ox 01/11/21 15:26 97.9 F 49 L 18 125/63 95 01/11/21 14:20 47 L 01/11/21 11:23 98.2 F 59 L 20 115/59 L 94 01/11/21 07:47 97.7 F 54 L 20 119/65 96 01/11/21 07:36 49 L PG Care Time/CCT Total # of Minutes Spent Total Time Spent with Patient: Total time spent is greater than 50% in coordination of care (as documented) at patient's floor/unit and/or counseling patient: Coding Level of Care Code 96770 Subseq Hosp Care Lvl 2 Diagnoses COVID-19 U07.1 Essential hypertension I10 Elevated hemoglobin A1c R73.09 Anxiety with depression F41.8 DVT prophylaxis Z29.9
[2021-01-12] MEDS: PANTOprazole 40 MG TAB PO SCH (06:02)
[2021-01-12 06:46] LABS: Hematocrit (blood only) 36.8 % (37-47); Hemoglobin 12.3 g/dL (12.0-16.0); Mean Corpuscular Hemoglobin 26.2 pg (25-34); Mean Corpuscular Hgb Conc 33.4 g/dL (32-36); Mean Corpuscular Volume 78.5 fL (80-100); Mean Platelet Volume 8.9 fL (7.4-10.4); Platelet Count 363 K/uL (130-400); RDW Coefficient of Variation 15.2 % (11.5-14.5); RDW Standard Deviation 44.1 fL (36.4-46.3); Red Blood Count 4.69 M/uL (4.2-5.4); White Blood Count 6.37 K/uL (4.8-10.8)
[2021-01-12 07:15] LABS: BUN Creatinine Ratio 30.7 (10-20); Calcium 9.1 mg/dl (8.5-10.1); Creatinine Clr Calc Pharmacy 208.4 ml/min; Est GFR (African American) 141.6; Est GFR (Non-African American) 122.2; Potassium 4.2 mmol/L (3.5-5.1)
[2021-01-12] MEDS: ENOXAPARIN 80 MG/0.8 ML SYR SQ SCH (07:41)
[2021-01-12] MEDS: lisinopril 20 MG TAB PO SCH (08:48)
[2021-01-12] MEDS: SERTRALINE HCL 50 MG TABLET PO SCH (08:48)
[2021-01-12] MEDS: guaiFENesin 600 MG TABCR PO SCH (08:49)
[2021-01-12] MEDS: dexAMETHasone 6 MG in SYRINGE 0 ML IV SCH (08:49)
[2021-01-12] MEDS: FUROSEMIDE 20 MG TAB PO SCH (08:52)
[2021-01-12] MEDS: INSULIN ASPART 100 UNITS/ML 3 ML PEN SC SCH ×2 (09:01→12:45)
[2021-01-12] MEDS: REMDESIVIR 100 MG in SODIUM CHLORIDE 0.9% 230 ML IV SCH (11:18)
[2021-01-12] MEDS: SODIUM CHLORIDE 0.9% 10ML FLUSH IV SCH (11:19)
--- NOTE | 2021-01-12 17:16 | Discharge Summary ---
Date of Service January 12, 2021 Admission HPI Per Admitting Provider The ED with a chief complaint of shortness of breath. The patient states that she first developed the upper respiratory symptoms around 12/30/2020 then had a positive Covid test on 01/02/2021. The patient reports that she continues to have significant dyspnea. She is not lost her taste or smell she has had some diarrhea and she reports some associated nausea. She reports no appetite. 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 She is seeing a weight loss physician was placed on Metformin. She typically is not check her glucoses at home Principal Diagnosis covid pneumonia factor V leiden deficiency, increased risk of VTE Discharge Exam Constitutional WD/WN, vitals as above Respiratory normal respiratory effort, lungs clear to auscultation Cardiovascular RRR, no murmur, no edema Gastrointestinal (Abdomen) normal bowel sounds, soft, nontender, no hepatosplenomegaly Musculoskeletal no cyanosis or clubbing, extremities motor strength 5/5 Skin no rashes, warm and dry Neurologic moves all extremities and awake Psychiatric A+Ox3, euthymic affect Discharge Data Allergies Allergy/AdvReac Type Severity Reaction Status Date / Time latex Allergy Mild RASH ON Verified 01/08/21 12:21 ARMS FROM USING GLOVES Penicillins Allergy Mild RASH Verified 01/08/21 12:21 CHILD NICKELSULFATE Allergy Mild RASH AND Uncoded 01/08/21 12:21 IRRITATION WHEN WEARS JEWELERY OR BUCKLE WITH NICKE Consultations 01/08/21 14:54 ED Decision to Admit Stat Ordered Studies 01/08/21 11:48 CT angio chest PE protocol Stat Hospital Course (1) COVID-19: Covid pneumonia still remains hypoxic on exertion <90% Ct chest 01/08/21 IMPRESSION: 1. No evidence of acute pulmonary embolism given the technical limitations of the study 2. Mediastinal and hilar lymphadenopathy, statistically reactive 3. Small bilateral pleural effusions 4. Multifocal pulmonary airspace opacities. Multifocal pneumonia favored over pulmonary edema. 5. Hepatic steatosis Pt remains on Dexamethasone 6 mg complete additional 5 days , remdesivir will complete last dose 01/12 2 step oxygen test pt does not require supplementation initial diagnosis 01/02, some minor symptoms prior to day of testing (2) Essential hypertension: will be continued on lisinopril and lasix (3) Elevated hemoglobin A1c: slightly elevated in 08/12 at 6.1, patient was started on Metformin as an out pt as part of a weight loss strategy for metabolic syndrome She is encouraged to continue to have carbohydrate conservative diet and resume metformin as an outpt (4) Anxiety with depression: zoloft will continue (5) DVT prophylaxis: Patient is a history of factor V Leiden deficiency and previous history of protein S deficiency. she will be discharged on xarelto 10 mg daily for 4 weeks Total Time Total Time Spent Total Time Spent (In Minutes): greater than 30 minutes were required to prepare discharge Discharge Plan Discharge Items Patient Disposition: Home - Self-Care Reason For Visit: COVID PNEUMONIA, ACUTE RESPIRATORY FAILURE Discharge Diagnosis: covid pneumonia Activity: Per Instructions section Activity Comment: gradually increase activity Non-emergency contact: Primary Care Provider Call non-emergency contact if: you have any medication questions and your symptoms worsen Follow-up/Referrals: Anny Ryder MD [Primary Care Provider] - 01/16/21 11:30 am (THIS APT WILL BE A PHONE CALL VISIT) Diet: Carb Consistent or DM2 Addtl Attending Provider Instructions: consider home isolation for additional 24 hours Home Isolation COVID-19 Instructions The following information about Home Isolation is from the CDC Website: https://www.cdc.gov/coronavirus/2019-ncov/hcp/grxdmrql-ahozmir-ggdvya.html Stay home except to get medical care People who are mildly ill with COVID-19 are able to isolate at home during their illness. You should restrict activities outside your home, except for getting medical care. Do not go to work, school, or public areas. Avoid using public transportation, ride-sharing, or taxis. Separate yourself from other people and animals in your home People: As much as possible, you should stay in a specific room and away from other people in your home. Also, you should use a separate bathroom, if available. Animals: You should restrict contact with pets and other animals while you are sick with COVID-19, just like you would around other people. Although there have not been reports of pets or other animals becoming sick with COVID-19, it is still recommended that people sick with COVID-19 limit contact with animals until more information is known about the virus. When possible, have another member of your household care for your animals while you are sick. If you are sick with COVID-19, avoid contact with your pet, including petting, snuggling, being kissed or licked, and sharing food. If you must care for your pet or be around animals while you are sick, wash your hands before and after you interact with pets and wear a face mask. Call ahead before visiting your doctor If you have a medical appointment, call the healthcare provider and tell them that you have or may have COVID-19. This will help the healthcare providers office take steps to keep other people from getting infected or exposed. Wear a face mask You should wear a face mask when you are around other people (e.g., sharing a room or vehicle) or pets and before you enter a healthcare providers office. If you are not able to wear a face mask (for example, because it causes trouble breathing), then people who live with you should not stay in the same room with you, or they should wear a face mask if they enter your room. Cover your coughs and sneezes Cover your mouth and nose with a tissue when you cough or sneeze. Throw used tissues in a lined trash can. Immediately wash your hands with soap and water f or at least 20 seconds or, if soap and water are not available, clean your hands with an alcohol-based hand shoe lacer that contains at least 60% alcohol. Clean your hands often Wash your hands often with soap and water for at least 20 seconds, especially after blowing your nose, coughing, or sneezing; going to the bathroom; and before eating or preparing food. If soap and water are not readily available, use an alcohol-based hand shoe lacer with at least 60% alcohol, covering all surfaces of your hands and rubbing them together until they feel dry. Soap and water are the best option if hands are visibly dirty. Avoid touching your eyes, nose, and mouth with unwashed hands. Avoid sharing personal household items You should not share dishes, drinking glasses, cups, eating utensils, towels, or bedding with other people or pets in your home. After using these items, they should be washed thoroughly with soap and water. Clean all high-touch surfaces everyday High touch surfaces include counters, tabletops, doorknobs, bathroom fixtures, toilets, phones, keyboards, tablets, and bedside tables. Also, clean any tristan rfaces that may have blood, stool, or body fluids on them. Use a household cleaning spray or wipe, according to the label instructions. Labels contain instructions for safe and effective use of the cleaning product including precautions you should take when applying the product, such as wearing gloves and making sure you have good ventilation during use of the product. Monitor your symptoms Seek prompt medical attention if your illness is worsening (e.g., difficulty breathing).Beforeseeking care, call your healthcare provider and tell them t hat you have, or are being evaluated for, COVID-19. Put on a face mask before you enter the facility. These steps will help the healthcare providers office to keep other people in the office or waiting room from getting infected or exposed. Ask your healthcare provider to call the local or state health department. Persons who are placed under active monitoring or facilitated self- monitoring should follow instructions provided by their local health department or occupational health professionals, as appropriate. When working with your local health department check their available hours. If you have a medical emergency and need to call 911, notify the dispatch personnel that you have, or are being evaluated for COVID-19. If possible, put on a face mask before emergency medical services arrive. Discontinuing home isolation Patients with confirmed COVID-19 should remain under home isolation precautions until the risk of secondary transmission to others is thought to be low. The decision to discontinue home isolation precautions should be made on a [id number] basis, in consultation with healthcare providers and state and local health departments. Pending Studies at Discharge: No Stand-Alone Forms: [facility], Work/School Release (Inpt), Smoking Cessation Medications and DC Order Prescriptions: New dexamethasone [Decadron] 6 mg tablet 6 mg PO DAILY Qty: 5 RF: 0 Xarelto 10 mg tablet 10 mg PO DAILY 35 Days Qty: 28 RF: 0 Continued ondansetron HCl [Zofran] 4 mg tablet 4 mg PO QID PRN (Reason: nausea and vomiting) Qty: 20 RF: 0 famotidine 40 mg tablet 40 mg PO HS PRN (Reason: GERD) Qty: 90 RF: 1 metformin 500 mg tablet 500 mg PO BID Qty: 60 RF: 3 lisinopril 20 mg tablet 20 mg PO QAM RF: 0 omeprazole 20 mg capsule,delayed release(DR/EC) 20 mg PO DAILYBB RF: 0 furosemide 20 mg tablet 20 mg PO QAM RF: 0 sertraline 50 mg tablet 50 mg PO QAM RF: 0 Discharge Orders: Discharge Order (Routine); Ordered 01/12/21 Ordered By: Karson Proctor/Other Patient Handouts: High Blood Sugar (Hyperglycemia), Exercise to Manage Your Blood Sugar, 5 Steps for Eating Healthier, Type 2 Diabetes, A1C Admission Data Admit Date/Time: 01/08/21 15:03 Attending Provider: Karson Cueva Admit Provider: Karson Cueva Primary Care Provider: Anny Ryder Other Providers: Karson Cueva Other Interventions: Discharge Summary Assessment (RN) Last Done: 01/12/21 13:05 Coding Level of Care Code D/C Day Management >30 mins Diagnoses COVID-19 U07.1 Essential hypertension I10 Elevated hemoglobin A1c R73.09 Anxiety with depression F41.8 DVT prophylaxis Z29.9
== END 2021-01-12 14:01 | disposition home or self-care (01) | DRG 177 ==
LOC: ED 11:24 → 2E 15:03 → 2S 01-10 07:32